=== PATIENT | female | born 1935 | race Caucasian/White ===

== ENCOUNTER 2016-05-22 17:28 | Observation (INO) | payer MEDICARE, OTHER ==
[2016-05-22] VITALS (10 sets, daily range): BP systolic 129–184; BP diastolic 72–93; PULSE 63–89; RESP 16–20; TEMP 96.1–98.3; O2SAT 94–98
[~2016-05-22] VITALS: Ht 165.1 cm; Wt 61.4 kg
[~2016-05-22 17:28] MED LIST: ASPI81TA82 PO; ATOR10 PO; DOXY100T PO; DYAZ; LEVO.05 PO; LOSA50TA PO
[2016-05-22 17:54] LABS: AUTOMATED NEUTROPHIL # 3.3 TH/MM3 (1.8-7.7); BASOPHIL # 0.1 TH/MM3 (0-0.2); BASOPHIL % 1.7 % (0.0-2.0); EOSINOPHIL # 0.2 TH/MM3 (0-0.4); EOSINOPHIL % 2.7 % (0.0-4.0); HEMATOCRIT 40.5 % (35.0-46.0); HEMO FLAGS DIFF FINAL; LYMPHOCYTE # 1.8 TH/MM3 (1.0-4.8); MEAN CELL VOLUME 88.4 FL (80.0-100.0); MEAN CORPUSCULAR HEMOGLOBIN 30.1 PG (27.0-34.0); MEAN CORPUSCULAR HGB CONC 34.1 % (32.0-36.0); MONO % 7.8 % (0.0-8.0); NEUT % 57.8 % (16.0-70.0); PLATELET COUNT 283 TH/MM3 (150-450); RED BLOOD COUNT 4.58 MIL/MM3 (4.00-5.30); WHITE BLOOD COUNT 5.9 TH/MM3 (4.0-11.0)
--- NOTE | 2016-05-22 17:59 | PD ---
HPI Chief Complaint: Chest Pain Time Seen by Provider: 17:33 Travel History International Travel<30 days: No Contact w/Intl Traveler<30days: No Traveled to known affect area: No History of Present Illness HPI This is an 80-year-old female who has a history of hypertension and hyperlipidemia who presents to the emergency department with 2 days of chest tightness described as discomfort, moderate severity, radiating to the left arm , with no associated shortness of breath or nausea. She said yesterday she thought maybe it was indigestion but it persisted throughout the day and gotten worse. She went to her friend's house who is a nurse who took her blood pressure and found it to be over 200. She encouraged her to come to the emergency department. She has no association of her symptoms with exertion. She follows with Dr. Christopher as an outpatient. PFSH Past Medical History Hx Anticoagulant Therapy: Yes (ASA) Autoimmune Disease: No Blood Disorders: No Anxiety: No Depression: No Cancer: No Cardiovascular Problems: Yes High Cholesterol: Yes Cerebrovascular Accident: Yes (TIA) Coronary Artery Disease: Yes Endocrine: Yes Genitourinary: No Headaches: Yes Hiatal Hernia: Yes Hypertension: Yes Implanted Vascular Access Dvce: No Musculoskeletal: No Neurologic: Yes Psychiatric: No Reproductive: No Respiratory: No Thyroid Disease: Yes Menopausal: Yes Past Surgical History Endocrine Surgery: Yes (PARTIAL THYROIDECTOMY) Other Surgery: Yes Social History Alcohol Use: Yes (1-2 GLASSES WINE) Tobacco Use: No (QUIT 1978) Substance Use: No Allergies-Medications (Allergen,Severity, Reaction): Coded Allergies: No Known Allergies (Verified , 05/22/16) Reported Meds & Prescriptions Reported Meds & Active Scripts Active Reported Vitamin D (Cholecalciferol) 1,000 Unit Tab 1,000 Units PO DAILY Aspirin Low Dose (Aspirin) 81 Mg Chew 81 Mg CHEW DAILY Levothyroxine (Levothyroxine Sodium) 50 Mcg Tab 50 Mcg PO DAILY Amlodipine (Amlodipine Besylate) 5 Mg Tab 5 Mg PO DAILY Atorvastatin (Atorvastatin Calcium) 10 Mg Tab 10 Mg PO HS Budesonide DR (Budesonide) 3 Mg Capdr 9 Mg PO DAILY Physical Exam Narrative GENERAL:Well appearing, no acute distress SKIN: Warm and dry. HEAD: Atraumatic. Normocephalic. EYES: Pupils equal and round. No injection or drainage. ENT: Moist mucous membranes NECK: Trachea midline. CARDIOVASCULAR: Regular rate and rhythm. No murmur appreciated. RESPIRATORY: Clear to auscultation. Breath sounds equal bilaterally. GASTROINTESTINAL: Abdomen soft, non-tender, nondistended. MUSCULOSKELETAL: No obvious deformities. NEUROLOGICAL: Awake and alert. No obvious cranial nerve deficits. Moving all extremities. PSYCHIATRIC: Appropriate mood and affect; insight and judgment normal. Data Data Last Documented VS Vital Signs Date Time Temp Pulse Resp B/P Pulse Ox O2 Delivery O2 Flow Rate FiO2 05/22/16 18:30 78 18 136/83 97 Room Air 05/22/16 17:46 98.3 Orders Electrocardiogram (05/22/16 17:46) Complete Blood Count With Diff (05/22/16 17:46) Comprehensive Metabolic Panel (05/22/16 17:46) Magnesium (Mg) (05/22/16 17:46) Prothrombin Time / Inr (Pt) (05/22/16 17:46) Act Partial Throm Time (Ptt) (05/22/16 17:46) Troponin I (05/22/16 17:46) Chest, Single Ap (05/22/16 17:46) Ecg Monitoring (05/22/16 17:46) Bilateral Bp Monitoring (05/22/16 17:46) Iv Access Insert/Monitor (05/22/16 17:46) Oximetry (05/22/16 17:46) Oxygen Administration (05/22/16 17:46) Aspirin Chew (Aspirin Chew) (05/22/16 18:00) Nitroglycerin 2% Oint (Nitroglycerin 2% (05/22/16 18:00) Sodium Chloride 0.9% Flush (Ns Flush) (05/22/16 18:00) Admit Order (Ed Use Only) (05/22/16 19:02) Labs Laboratory Tests Test 05/22/16 17:30 White Blood Count 5.9 TH/MM3 Red Blood Count 4.58 MIL/MM3 Hemoglobin 13.8 GM/DL Hematocrit 40.5 % Mean Corpuscular Volume 88.4 FL Mean Corpuscular Hemoglobin 30.1 PG Mean Corpuscular Hemoglobin 34.1 % Concent Red Cell Distribution Width 13.0 % Platelet Count 283 TH/MM3 Mean Platelet Volume 7.7 FL Neutrophils (%) (Auto) 57.8 % Lymphocytes (%) (Auto) 30.0 % Monocytes (%) (Auto) 7.8 % Eosinophils (%) (Auto) 2.7 % Basophils (%) (Auto) 1.7 % Neutrophils # (Auto) 3.3 TH/MM3 Lymphocytes # (Auto) 1.8 TH/MM3 Monocytes # (Auto) 0.5 TH/MM3 Eosinophils # (Auto) 0.2 TH/MM3 Basophils # (Auto) 0.1 TH/MM3 CBC Comment DIFF FINAL Differential Comment Prothrombin Time 10.0 SEC Prothromb Time International 0.9 RATIO Ratio Activated Partial 25.3 SEC Thromboplast Time Sodium Level 142 MEQ/L Potassium Level 3.4 MEQ/L Chloride Level 105 MEQ/L Carbon Dioxide Level 28.3 MEQ/L Anion Gap 9 MEQ/L Blood Urea Nitrogen 18 MG/DL Creatinine 0.61 MG/DL Estimat Glomerular Filtration 94 ML/MIN Rate Random Glucose 126 MG/DL Calcium Level 8.6 MG/DL Magnesium Level 2.0 MG/DL Total Bilirubin 0.4 MG/DL Aspartate Amino Transf 16 U/L (AST/SGOT) Alanine Aminotransferase 19 U/L (ALT/SGPT) Alkaline Phosphatase 92 U/L Troponin I 0.02 NG/ML Total Protein 6.8 GM/DL Albumin 3.3 GM/DL MDM Medical Decision Making Medical Screen Exam Complete: Yes Emergency Medical Condition: Yes Interpretation(s) Afebrile, hypertensive No leukocytosis Mild hypokalemia Troponin normal Last 24 hours Impressions Chest X-Ray 05/22/16 5932 Signed Impressions: Service Date/Time: Sunday, May 22, 2016 17:52 - CONCLUSION: No acute disease. Geo Ervin MD Differential Diagnosis Acute coronary syndrome, pneumonia, anxiety, GERD Narrative Course This is an 80-year-old female who presents to the emergency department with chest discomfort that's been present and worsening over the past 2 days associated with hypertension and some left arm discomfort. She was placed on a monitor and an IV was established. EKG was reassuring. Labs are reassuring with a troponin of 0.02. Patient was given 162 of aspirin and nitroglycerin ointment was applied and the patient's hypertension resolved. Patient will be placed in observation for serial cardiac enzymes and possible risk stratification in the setting of a concerning story for possible acute coronary syndrome Diagnosis Primary Impression: Chest pain Qualified Code: R07.9 - Chest pain, unspecified type Admitting Information Admitting Physician Requests: Observation Sol South MD May 22, 2016 17:58
[2016-05-22] MEDS ORDERED: NITROGLYCERIN 2% OINT 1 GM PACKET TOP ONE (18:00)
[2016-05-22] MEDS ORDERED: SODIUM CHLORIDE 0.9% FLUSH 5 ML FLUSH IVF PRN ×2 (18:00→19:30)
[2016-05-22] MEDS ORDERED: ASPIRIN 81 MG CHEW TAB PO ONE (18:00)
[2016-05-22 18:01] LABS: CHLORIDE 105 MEQ/L (98-107); POTASSIUM 3.4 MEQ/L (3.5-5.1); SODIUM (NA) 142 MEQ/L (136-145)
[2016-05-22 18:04] LABS: ANION GAP 9 MEQ/L (5-15); BICARBONATE 28.3 MEQ/L (21.0-32.0)
[2016-05-22 18:05] LABS: BLOOD UREA NITROGEN 18 MG/DL (7-18)
[2016-05-22 18:07] LABS: ALT (GPT) 19 U/L (10-53); APTT (PATIENT) 25.3 SEC (24.3-30.1); INTERNATIONAL NORMALIZED RATIO 0.9 RATIO
[2016-05-22 18:08] LABS: AST (GOT) 16 U/L (15-37); GLOMERULAR FILTRATION RATE 94 ML/MIN (>89)
[2016-05-22 18:09] LABS: TOTAL BILIRUBIN ADULT 0.4 MG/DL (0.2-1.0)
[2016-05-22] MEDS ORDERED: BUDE3CAP PO (18:09)
[2016-05-22] MEDS ORDERED: ASPI81CH37 CHEW (18:09)
[2016-05-22] MEDS ORDERED: LEVO50TA4 PO (18:09)
[2016-05-22] MEDS ORDERED: AMLO5TAB2 PO (18:09)
[2016-05-22] MEDS ORDERED: VITA100064 PO (18:09)
[2016-05-22] MEDS ORDERED: ATOR10TA15 PO (18:09)
[2016-05-22 18:10] LABS: ALKALINE PHOSPHATASE 92 U/L (45-117)
--- NOTE | 2016-05-22 18:37 | RADHPO ---
EXAM DATE/TIME: 05/22/2016 17:52 [facility] COMPARISON: No previous studies available for comparison. INDICATIONS : Chest pain. MEDICAL HISTORY : None. SURGICAL HISTORY : None. ENCOUNTER: Initial ACUITY: 1 day PAIN SCORE: 4/10 LOCATION: Bilateral chest FINDINGS: A single view of the chest demonstrates the lungs to be symmetrically aerated without evidence of mas s, infiltrate or effusion. The cardiomediastinal contours are unremarkable. Osseous structures are intact. CONCLUSION: No acute disease. Geo Ervin MD on May 22, 2016 at 18:36 Board Certified Radiologist. This report was verified electronically.
[2016-05-22] MEDS: SODIUM CHLORIDE 0.9% FLUSH 5 ML FLUSH IVF SCH (22:15)
[2016-05-23] VITALS: BP 92/70; PULSE 63; RESP 18; TEMP 96.8; O2SAT 94
[2016-05-23 04:00] VITALS: BP 157/80; PULSE 62; RESP 18; TEMP 96.9; O2SAT 94
[2016-05-23] MEDS ORDERED: LEVOTHYROXINE SODIUM 50 MCG TAB PO SCH (06:00)
--- NOTE | 2016-05-23 07:55 | HHI.HP ---
[facility] Service [facility] Primary Care Physician Lita Coughlin DO Admission Diagnosis chest pain Diagnoses: (1) Chest pain Diagnosis: Principal (2) Hypertension Diagnosis: Secondary (3) Hyperlipidemia Diagnosis: Secondary (4) Hypothyroidism Diagnosis: Secondary Chief Complaint: Chest pain Travel History International Travel<30 Days: No Contact w/Intl Traveler <30 Da: No Traveled to Known Affected Are: No History of Present Illness 80-year-old female with known history of hypertension, hyperlipidemia , hypothyroidism, possible Crohn's disease who presented to hospital because of chest pain. Patient states that her pain started 2 days ago dislocating left anterior chest as a tightness sensation scale 6/10 on a discomfort scale. Patient denies any actual pain. She states that the discomfort was in her left anterior chest radiating into her left arm and left neck that has remained persistent for the 2 days. She denied any nausea, vomiting, shortness of breath , dyspnea, diaphoresis. She was checking her blood pressure intermittently and noticed that her systolic pressure was 185. She did visit a friend last evening who is a nurse. She requested that her friend check her blood pressure and the systolic pressure was 209. At that time is recommended by the friend and the patient come to the hospital for evaluation. Patient had workup done emergency department and initial troponins and EKGs did not indicate any acute coronary event. Is recommended by the ER physician that the patient be observed and chest pain center for further recommendations. I did contact the patient's white shoe ragger who indicates that the patient has had an exercise nuclear stress test done on 12/13/14 which was normal with ejection fraction 75% . Health Information Management Director does agree with performing stress test today. Review of Systems Constitutional: DENIES: Diaphoretic episodes, Fatigue, Fever, Weight gain, Weight loss, Chills, Dizziness, Change in appetite, Night Sweats Eyes: DENIES: Blurred vision, Diplopia, Eye inflammation, Eye pain, Vision loss , Photosensitivity, Double Vision Ears, nose, mouth, throat: DENIES: Hearing loss, Nasal discharge, Throat pain, Ear Pain, Running Nose, Sinus Pain, Toothache Respiratory: DENIES: Apneas, Cough, Snoring, Wheezing, Hemoptysis, Sputum production, Shortness of breath Cardiovascular: COMPLAINS OF: Chest pain, Palpitations, DENIES: Syncope, Dyspnea on Exertion, Lower Extremity Edema, Orthopnea Gastrointestinal: DENIES: Abdominal pain, Black stools, Bloody stools, Constipation, Diarrhea, Nausea, Vomiting, Difficulty Swallowing, Anorexia Genitourinary: DENIES: Abnormal vaginal bleeding, Dysmenorrhea, Dyspareunia, Sexual dysfunction, Urinary frequency, Urinary incontinence, Urgency, Hematuria , Dysuria, Nocturia, Vaginal discharge Neurologic: DENIES: Abnormal gait, Headache, Localized weakness, Paresthesias, Seizures, Speech Problems, Tremor, Poor Balance Psychiatric: DENIES: Anxiety, Confusion, Mood changes, Depression Past Family Social History Past Medical History Hypertension Hyperlipidemia Hypothyroidism Possible Crohn's disease with ulcerations in the small bowel Past Surgical History Right rotator cuff surgery Lesion removed from her back Tonsillectomy Reported Medications Reported Meds & Active Scripts Active Reported Vitamin D (Cholecalciferol) 1,000 Unit Tab 1,000 Units PO DAILY Aspirin Low Dose (Aspirin) 81 Mg Chew 81 Mg CHEW DAILY Levothyroxine (Levothyroxine Sodium) 50 Mcg Tab 50 Mcg PO DAILY Amlodipine (Amlodipine Besylate) 5 Mg Tab 5 Mg PO DAILY Atorvastatin (Atorvastatin Calcium) 10 Mg Tab 10 Mg PO HS Budesonide DR (Budesonide) 3 Mg Capdr 9 Mg PO DAILY Allergies: Coded Allergies: No Known Allergies (Verified , 05/22/16) Family History Review significant for mother from bowel obstruction, patient denies any cardiac history Social History Patient quit smoking in 1978. Prior to that she smoked socially now more than a pack a week for a few years. Patient does drink 2 glasses of wine daily. Patient denies any illicit drugs Physical Exam Vital Signs Vital Signs Date Time Temp Pulse Resp B/P Pulse Ox O2 Delivery O2 Flow Rate FiO2 05/23/16 04:00 96.9 62 18 157/80 94 05/23/16 00:00 96.8 63 18 92/70 94 05/22/16 23:02 95 21 05/22/16 21:00 63 05/22/16 20:58 96.1 64 16 153/77 95 05/22/16 20:57 60 18 129/73 94 05/22/16 20:07 64 18 134/73 94 Room Air 05/22/16 19:02 72 18 95 Room Air 05/22/16 19:02 71 18 132/77 95 Room Air 05/22/16 18:30 78 18 136/83 97 Room Air 05/22/16 18:03 77 18 172/89 98 Room Air 147/72 05/22/16 17:55 97 Room Air 05/22/16 17:55 97 Room Air 05/22/16 17:55 6 97 Room Air 05/22/16 17:46 98.3 89 20 184/93 97 Physical Exam GENERAL: Well-developed, well-nourished, in no acute distress. alert and orientated HEENT: Head is normocephalic without any lesions or masses noted. Facial features are symmetric. Eyes: Pupils equal round reactive to light. Extraocular muscles are intact. Conjunctivae were clear. Oropharyngeal: Pharynx without any erythema edema. Tongue is midline without deviation. Buccal mucosa is moist without any masses or lesions NECK: Supple without any masses. Trachea midline no deviation. No JVD, no bruits are appreciated CARDIAC: Regular rhythm, regular rate. S1/S2 are heard. No murmurs gallops or rubs. LUNGS: Clear to auscultation bilaterally. No wheeze, rhonchi or rales. No use of accessory muscles on inspiration or expiration. ABDOMEN: Soft, nontender. Nondistended. Bowel sounds heard in all 4 quadrants. No organomegaly or masses. Negative rebound, negative guarding EXTREMITIES: No edema, pulses are equal bilaterally. No cyanosis or clubbing NEUROLOGY: Mood and affect appear appropriate. Cranial nerves II through XII grossly intact. Muscle strength 5/5 in upper and lower extremities bilaterally. Deep tendon reflexes are 2+ in upper and lower extremities bilaterally. Laboratory Laboratory Tests Test 05/22/16 05/22/16 05/23/16 17:30 20:35 00:19 White Blood Count 5.9 Red Blood Count 4.58 Hemoglobin 13.8 Hematocrit 40.5 Mean Corpuscular Volume 88.4 Mean Corpuscular Hemoglobin 30.1 Mean Corpuscular Hemoglobin 34.1 Concent Red Cell Distribution Width 13.0 Platelet Count 283 Mean Platelet Volume 7.7 Neutrophils (%) (Auto) 57.8 Lymphocytes (%) (Auto) 30.0 Monocytes (%) (Auto) 7.8 Eosinophils (%) (Auto) 2.7 Basophils (%) (Auto) 1.7 Neutrophils # (Auto) 3.3 Lymphocytes # (Auto) 1.8 Monocytes # (Auto) 0.5 Eosinophils # (Auto) 0.2 Basophils # (Auto) 0.1 CBC Comment DIFF FINAL Differential Comment Prothrombin Time 10.0 Prothromb Time International 0.9 Ratio Activated Partial 25.3 Thromboplast Time Sodium Level 142 Potassium Level 3.4 Chloride Level 105 Carbon Dioxide Level 28.3 Anion Gap 9 Blood Urea Nitrogen 18 Creatinine 0.61 Estimat Glomerular Filtration 94 Rate Random Glucose 126 Calcium Level 8.6 Magnesium Level 2.0 Total Bilirubin 0.4 Aspartate Amino Transf 16 (AST/SGOT) Alanine Aminotransferase 19 (ALT/SGPT) Alkaline Phosphatase 92 Troponin I 0.02 0.03 0.03 Total Protein 6.8 Albumin 3.3 Result Diagram: 05/22/16172905/22/161729 Imaging Last Impressions Chest X-Ray 05/22/16 1746 Signed Impressions: Service Date/Time: Sunday, May 22, 2016 17:52 - CONCLUSION: No acute disease. Geo Ervin MD Assessment and Plan Assessment and Plan Chest pain, typical Patient with increased risk factors to include age, hypertension, hyperlipidemia Discuss with patient's white shoe ragger Dr. Marino, patient has had stress test done in 12/13/14 which was normal with ejection fraction 75%. He does agree with performing stress test Serial cardiac enzymes were reviewed by myself and remained negative and ruled out any acute coronary event Serial EKGs were reviewed without any changes Perform nuclear stress test rule out any underlying ischemia Continue aspirin and nitroglycerin as needed Accelerated hypertension, resolved Status post nitroglycerin emergency department with resolution of her accelerated hypertension Continue home medications Hyperlipidemia Continue home medications Hypothyroidism Continue home medications DVT prevention Low risk, early ambulation Written by Jeff Shaw PA-C, acting as scribe for Dr. Miller on 05/23/16 at 1205. The documentation accurately reflects the work and decisions performed face-to- face by Dr. Miller on 05/23/16 at 1205. Discharge disposition Discharge home in stable condition Activity: Ad lisa. Diet: Healthy heart diet Medications per medication reconciliation Follow-up primary medical doctor one week, white shoe ragger in 2 weeks Problem Qualifiers (1) Chest pain: Qualified Code: R07.9 - Chest pain, unspecified type (2) Hypertension: Qualified Code: I15.9 - Secondary hypertension (3) Hyperlipidemia: Qualified Code: E78.5 - Hyperlipidemia, unspecified hyperlipidemia type (4) Hypothyroidism: Qualified Code: E03.9 - Hypothyroidism, unspecified type Jeff Shaw May 23, 2016 07:55
[2016-05-23 08:00] VITALS: BP 151/79; PULSE 67; RESP 17; TEMP 97.9; O2SAT 94
[2016-05-23] MEDS: SODIUM CHLORIDE 0.9% FLUSH 5 ML FLUSH IVF SCH (08:10)
[2016-05-23 08:56] VITALS: O2SAT 94
[2016-05-23] MEDS ORDERED: amLODIPine BESYLATE 5 MG TAB PO SCH (09:00)
[2016-05-23] MEDS ORDERED: ASPIRIN 81 MG CHEW TAB CHEW SCH (09:00)
[2016-05-23] MEDS ORDERED: REGADENOSON INJ 0.4 MG/5 ML SYR IV ONE (10:41)
--- NOTE | 2016-05-23 11:56 | RADHPO ---
EXAM DATE/TIME: 05/23/2016 10:52 [facility] COMPARISON: No previous studies available for comparison. INDICATIONS : Susbternal chest pain radiating to left arm and neck for three days. Angina. DOSE: 25.4 mCi Tc99m Myoview at stress. 8.5 mCi Tc99m Myoview at rest. 0.4 mg Lexiscan STRESS SYMPTOMS: Dyspnea and stomach pain. EJECTION FRACTION: 67% MEDICAL HISTORY : Hypertension. Hypothyroidism. SURGICAL HISTORY : Tonsillectomy. Rotator cuff, right. Lesion removed from back. ENCOUNTER: Initial ACUITY: 3 days PAIN SCALE: 6/10 LOCATION: Substernal chest TECHNIQUE: The patient underwent pharmacologic stress with infusion of prescribed dose. Continuous ECG tracing was monitored during stress. Gated SPECT imaging was performed after stress and conventional SPECT i maging was performed at rest. The examination was performed on a SPECT/CT scanner, both attenuation and non-corrected datasets were reviewed. FINDINGS: DISTRIBUTION: The maximum perfused segment at stress is in the inferolateral wall. PERFUSION STUDY: The pattern of perfusion at stress is within normal limits. No fixed or reversible perfusion defect i s identified. GATED STUDY: There is intact wall motion and thickening without hypokinetic or dyskinetic segments. CONCLUSION: 1. Left ventricle perfusion is within normal limits without fixed or reversible perfusion defect iden tified. 2. Normal left ventricle wall motion with calculated ejection fraction of 67%. RISK CATEGORY: Low (<1% Annual Mortality Rate) Geo Cherry MD on May 23, 2016 at 11:53 Board Certified Radiologist. This report was verified electronically.
--- NOTE | 2016-05-23 11:58 | HHI.DCPOC ---
Discharge Care Plan Diagnosis: (1) Chest pain Goals to Promote Your Health * To prevent worsening of your condition and complications * To maintain your health at the optimal level Directions to Meet Your Goals Take your medications as prescribed Follow your dietary instruction Follow activity as directed Keep your appointments as scheduled Take your immunizations and boosters as scheduled If your symptoms worsen call your PCP, if no PCP go to Urgent Care Center or Emergency Room Smoking is Dangerous to Your Health. Avoid second hand smoke Call the 24-hour hour crisis hotline for domestic abuse at Jeff Shaw May 23, 2016 11:58
[2016-05-23 12:00] VITALS: BP 149/77; PULSE 77; RESP 19; TEMP 97.9; O2SAT 96
--- NOTE | 2016-05-23 13:00 | TR ---
Date Performed: 05/23/2016 Time Performed: 10:55:46 DOCTOR: Jaya Stafford DRUG LIST: CLINICAL HISTORY: CHEST PAIN REASON FOR TEST: Chest pain. REASON FOR ENDING: OBSERVATION: CONCLUSION: Lexiscan stress test was performed under standard four minute protocol. Radionuclide was injected one minute prior to ending the test. Developed dyspnea and stomach cramps, systolic blo od pressure became mildly elevated. No electrocardiographic abnormalities were present to suggest isc hemia. Recovery was quick and uneventful with resolution of symptoms, systolic blood pressure improve d remained slightly elevated. Nuclear imaging and interpretation are pending. COMMENTS:
[2016-05-23] MEDS ORDERED: ATORVASTATIN 10 MG TAB PO SCH (21:00)
--- NOTE | 2016-05-23 23:22 | EKG ---
Date Performed: 05/23/2016 Time Performed: 06:08:42 PTAGE: 80 years EKG: Sinus rhythm Leftward axis Anterior T wave changes are nonspecific Borderline ECG PREVIOUS TRACING : 05/23/2016 00.01 Compared to prior tracing no significant change DOCTOR: Lucas Mistry Interpretating Date/Time 05/23/2016 23:20:54
--- NOTE | 2016-05-23 23:32 | EKG ---
Date Performed: 05/23/2016 Time Performed: 00:01:20 PTAGE: 80 years EKG: Sinus rhythm Leftward axis Anterolateral T wave changes are nonspecific Borderline ECG PREVIOUS TRACING : 05/22/2016 20.46 Compared to prior tracing no significant change DOCTOR: Lucas Mistry Interpretating Date/Time 05/23/2016 23:29:58
--- NOTE | 2016-05-23 23:38 | EKG ---
Date Performed: 05/22/2016 Time Performed: 20:46:26 PTAGE: 80 years EKG: Sinus rhythm . Leftward axis Possible anterior infarct - age undetermined Lateral ST-T changes are nonspecific Abn ormal ECG PREVIOUS TRACING : 05/22/2016 17.33 Compared to the previous tracing, rate has decreased DOCTOR: Lucas Mistry Interpretating Date/Time 05/23/2016 23:37:10
--- NOTE | 2016-05-24 21:00 | EKG ---
Date Performed: 05/22/2016 Time Performed: 17:33:54 PTAGE: 80 years EKG: Sinus rhythm . Left axis deviation Left ventricular hypertrophy Lateral ST-T changes are probably due to ventricul ar hypertrophy Abnormal ECG PREVIOUS TRACING : 08/20/2011 11.33 Compared to the previous tracing, ST/T changes are slightly more prominent DOCTOR: Lucas Mistry Interpretating Date/Time 05/24/2016 21:00:19
== END 2016-05-23 12:52 | disposition home or self-care (01) ==
LOC: PHED 17:28 → PHEDA 19:03 → PH3A 20:53
PROVIDERS: ADMIT Family Medicine; ATTEND Family Medicine
DX: R07.9 Chest pain, unspecified (principal); I15.9 Secondary hypertension, unspecified; R94.31 Abnormal electrocardiogram [ECG] [EKG]; E78.5 Hyperlipidemia, unspecified; E03.9 Hypothyroidism, unspecified; I25.10 Atherosclerotic heart disease of native coronary artery without angina pectoris; E78.00 Pure hypercholesterolemia, unspecified; Z86.73 Personal history of transient ischemic attack (TIA), and cerebral infarction without residual deficits; Z87.891 Personal history of nicotine dependence
CPT/HCPCS: 71010; 78452; 80053; 83735; 84484; 85025; 85610; 85730; 93005; 93017; 99285; A9502; G0378; J2785

== ENCOUNTER 2017-07-19 08:11 | Emergency (ER) | payer MEDICARE, OTHER ==
[~2017-07-19] VITALS: Ht 165.1 cm; Wt 61.2 kg
[~2017-07-19 08:11] MED LIST changes: +AMLO5TAB2 PO; +ASPI81CH6 CHEW; -ASPI81TA82 PO; -ATOR10 PO; +ATOR10TA15 PO; +BUDE3CAP PO; -DOXY100T PO; -DYAZ; -LEVO.05 PO; +LEVO50TA4 PO; -LOSA50TA PO; +VITA100064 PO
[2017-07-19 08:15] VITALS: BP 139/70; PULSE 66; RESP 16; TEMP 97.9
[2017-07-19] MEDS ORDERED: CARV3.12 PO (08:38)
[2017-07-19] MEDS ORDERED: ENTERAGAM PO (08:38)
[2017-07-19] MEDS ORDERED: CEPH-460 PO (08:39)
--- NOTE | 2017-07-19 08:39 | PD ---
HPI Chief Complaint: Skin Problem Time Seen by Provider: 08:34 Travel History International Travel<30 days: No Contact w/Intl Traveler<30days: No Traveled to known affect area: No History of Present Illness HPI This 82-year-old female has noted swelling and pain in the nasal septum. The pain spreads around the face. She has not had fever or chills. There has not been any drainage from her nose. There is no history of trauma. She does not have diabetes. She went to urgent care center yesterday and was given prescription for steroid spray for her nose PFSH Past Medical History Hx Anticoagulant Therapy: Yes (lavix) Autoimmune Disease: No Blood Disorders: No Anxiety: No Depression: No Heart Rhythm Problems: No Cancer: No Cardiac Catheterization: No Cardiovascular Problems: No High Cholesterol: Yes (< 50% blockage carotids ) Congestive Heart Failure: No Cerebrovascular Accident: Yes (TIA) Coronary Artery Disease: Yes Diabetes: No Diminished Hearing: No Endocrine: Yes Gastrointestinal Disorders: Yes (THICKENED COLON) Genitourinary: No Headaches: Yes Hiatal Hernia: Yes Hypertension: Yes Implanted Vascular Access Dvce: No Musculoskeletal: No Neurologic: Yes Psychiatric: No Reproductive: No Respiratory: No Immunizations Current: Yes Thyroid Disease: Yes Menopausal: Yes Past Surgical History Coronary Artery Bypass Graft: No Endocrine Surgery: Yes (PARTIAL THYROIDECTOMY) Gynecologic Surgery: Yes (BLADDER SLING) Tonsillectomy: Yes Other Surgery: Yes (SPINAL CYST) Social History Alcohol Use: Yes (1-2 GLASSES WINE) Tobacco Use: No (QUIT 1978) Substance Use: No Allergies-Medications (Allergen,Severity, Reaction): Coded Allergies: No Known Allergies (Verified , 05/22/16) Reported Meds & Prescriptions Reported Meds & Active Scripts Active Reported Vitamin D (Cholecalciferol) 1,000 Unit Tab 1,000 Units PO DAILY Aspirin Low Dose (Aspirin) 81 Mg Chew 81 Mg CHEW DAILY Levothyroxine (Levothyroxine Sodium) 50 Mcg Tab 50 Mcg PO DAILY Amlodipine (Amlodipine Besylate) 5 Mg Tab 5 Mg PO DAILY Atorvastatin (Atorvastatin Calcium) 10 Mg Tab 10 Mg PO HS Budesonide DR (Budesonide) 3 Mg Capdr 9 Mg PO DAILY Review of Systems General / Constitutional: No: Fever, Chills Eyes: No: Diploplia HENT: Positive: Headaches Cardiovascular: No: Chest Pain or Discomfort, Palpitations Respiratory: No: Cough Gastrointestinal: No: Vomiting Skin: Positive Rash Endocrine: No: Heat Intolerance Physical Exam Narrative GENERAL: Well-developed female SKIN: Focused skin assessment warm/dry. HEAD: Atraumatic. Normocephalic. EYES: Pupils equal and round. No scleral icterus. No injection or drainage. ENT: No nasal bleeding or discharge. Mucous membranes pink and moist. There is erythema on both sides of the nasal septum. The right side of the septum is more swollen and is quite tender. There is no pus visible but I believe this is a small pustular lesion NECK: Trachea midline. No JVD. NEUROLOGICAL: Awake and alert. No obvious cranial nerve deficits. Motor grossly within normal limits. Normal speech. PSYCHIATRIC: Appropriate mood and affect; insight and judgment normal. Data Data Last Documented VS Vital Signs Date Time Temp Pulse Resp B/P (MAP) Pulse Ox O2 Delivery O2 Flow Rate FiO2 07/19/17 08:15 97.9 66 16 139/70 (93) Room Air MDM Medical Decision Making Medical Screen Exam Complete: Yes Emergency Medical Condition: Yes Medical Record Reviewed: Yes Differential Diagnosis Differential includes cellulitis, small abscess, postural Narrative Course Tenderness consistent with a pustule of the nasal septum Diagnosis Primary Impression: Pustule of nostril Additional Instructions: Apply warm compresses Scripts Cephalexin (Keflex) 500 Mg Capsule 500 MG PO Q6H for Infection for 7 Days, #28 CAP 0 Refills Prov: Warren Martin MD 07/19/17 Disposition: 01 DISCHARGE HOME Condition: Stable Warren Martin MD Jul 19, 2017 08:39
[2017-07-19] MEDS ORDERED: PLAV75TA29 PO (08:45)
[2017-07-19] MEDS ORDERED: VITA100021 SL (08:45)
[2017-07-19] MEDS ORDERED: SPIR25TA PO (08:45)
[2017-07-20] MEDS ORDERED: AMLO2.5T PO (05:04)
[2017-07-20] MEDS ORDERED: PANT40TA3 PO (05:04)
== END 2017-07-19 08:53 | disposition home or self-care (01) ==
LOC: PHED 08:11
DX: L08.9 Local infection of the skin and subcutaneous tissue, unspecified (principal); I10 Essential (primary) hypertension; I25.10 Atherosclerotic heart disease of native coronary artery without angina pectoris; E78.00 Pure hypercholesterolemia, unspecified; Z86.73 Personal history of transient ischemic attack (TIA), and cerebral infarction without residual deficits; Z79.82 Long term (current) use of aspirin; Z79.899 Other long term (current) drug therapy
CPT/HCPCS: 99283

== ENCOUNTER 2017-07-20 04:04 | Inpatient (IN) | payer MEDICARE, OTHER ==
[2017-07-20] VITALS (8 sets, daily range): BP systolic 107–183; BP diastolic 51–81; PULSE 58–75; RESP 18–20; TEMP 97–99.8; O2SAT 92–98
[~2017-07-20] VITALS: Ht 165.1 cm; Wt 62.8 kg
[~2017-07-20 04:04] MED LIST changes: -AMLO5TAB2 PO; -ASPI81CH6 CHEW; -BUDE3CAP PO; +CARV3.12 PO; +CEPH-460 PO; +ENTERAGAM PO; +PLAV75TA29 PO; +SPIR25TA PO; +VITA100021 SL
--- NOTE | 2017-07-20 04:19 | PD ---
HPI Chief Complaint: Nasal cellulitis Time Seen by Provider: 04:18 Travel History International Travel<30 days: No Contact w/Intl Traveler<30days: No Traveled to known affect area: No History of Present Illness HPI 82-year-old female came to the emergency room with infection of her nose that is getting worse in spite of being on antibiotic. Patient says that she started getting this last Tuesday where she started having pain in her nose. She had gone to the urgent care on Tuesday where she was told that it was probably allergy and she was discharged home on Flonase and some of the nasal spray. However by the end of the day symptoms did not get better and Tuesday she decided to come to the emergency room. She was seen in [place] emergency room and was discharged home on antibiotic. Patient says that she has taken the antibiotic for more than 24 hours and has been putting warm compress but the swelling, redness and the pain is getting worse. She was unable to sleep because of the throbbing pain. Patient says now the pain is radiating to her teeth and her ears. She has been getting some chills intermittently. In triage she was afebrile and the rest of the vital signs were within acceptable limit. She does not have history of MRSA as far as she knows. This has never happened to her before. [facility] Past Medical History Narrative Medical List of her past medical, surgical, social and family history reviewed from the nursing note. Hx Anticoagulant Therapy: Yes (lavix) Autoimmune Disease: No Blood Disorders: No Anxiety: No Depression: No Heart Rhythm Problems: No Cancer: No Cardiac Catheterization: No Cardiovascular Problems: No High Cholesterol: Yes (< 50% blockage carotids ) Congestive Heart Failure: No Cerebrovascular Accident: Yes (TIA) Coronary Artery Disease: Yes Diabetes: No Diminished Hearing: No Endocrine: Yes Gastrointestinal Disorders: Yes (THICKENED COLON) Genitourinary: No Headaches: Yes Hiatal Hernia: Yes Hypertension: Yes Implanted Vascular Access Dvce: No Musculoskeletal: No Neurologic: Yes Psychiatric: No Reproductive: No Respiratory: No Immunizations Current: Yes Thyroid Disease: Yes Menopausal: Yes Past Surgical History Coronary Artery Bypass Graft: No Endocrine Surgery: Yes (PARTIAL THYROIDECTOMY) Gynecologic Surgery: Yes (BLADDER SLING) Tonsillectomy: Yes Other Surgery: Yes (SPINAL CYST) Social History Alcohol Use: Yes (1-2 GLASSES WINE) Tobacco Use: No (QUIT 1979) Substance Use: No Allergies-Medications (Allergen,Severity, Reaction): Coded Allergies: Sulfa (Sulfonamide Antibiotics) (Verified Allergy, Severe, Rash, 07/19/17) Comments List of her allergies reviewed from the nursing note. Reported Meds & Prescriptions Reported Meds & Active Scripts Active Reported Pantoprazole (Pantoprazole Sodium) 40 Mg Tab 40 Mg PO DAILY Amlodipine (Amlodipine Besylate) 2.5 Mg Tab 2.5 Mg PO DAILY Vitamin B-12 (Cyanocobalamin) 1,000 Mcg Subl 1,000 Mcg SL DAILY Plavix (Clopidogrel Bisulfate) 75 Mg Tab 75 Mg PO DAILY Spironolactone 25 Mg Tab 25 Mg PO DAILY Carvedilol 3.125 Mg Tab 3.125 Mg PO DAILY Vitamin D3 (Cholecalciferol) 1,000 Unit Tab 1,000 Units PO DAILY Levothyroxine (Levothyroxine Sodium) 50 Mcg Tab 50 Mcg PO DAILY Atorvastatin (Atorvastatin Calcium) 10 Mg Tab 10 Mg PO HS Narrative Medication List of her home medications reviewed from the nursing note. Review of Systems Except as stated in HPI: all other systems reviewed are Neg Physical Exam Narrative GENERAL: Awake, alert, moderate distress SKIN: Focused skin assessment warm/dry. HEAD: Atraumatic. Normocephalic. EYES: Pupils equal and round. No scleral icterus. No injection or drainage. ENT: No nasal bleeding or discharge. Mucous membranes pink and moist. Tip of her nose and the septum appears to be swollen, erythematous, warm to touch and extremely tender. There is significant swelling of the cartilaginous part of the septum with tenderness. There is some yellowish encrustation at the base of the septum bilaterally NECK: Trachea midline. No JVD. CARDIOVASCULAR: Regular rate and rhythm. No murmur appreciated. RESPIRATORY: No accessory muscle use. Clear to auscultation. Breath sounds equal bilaterally. GASTROINTESTINAL: Abdomen soft, non-tender, nondistended. Hepatic and splenic margins not palpable. MUSCULOSKELETAL: No obvious deformities. No clubbing. No cyanosis. No edema. NEUROLOGICAL: Awake and alert. No obvious cranial nerve deficits. Motor grossly within normal limits. Normal speech. PSYCHIATRIC: Appropriate mood and affect; insight and judgment normal. Data Data Last Documented VS Orders Orders Complete Blood Count With Diff (07/20/17 04:36) Basic Metabolic Panel (Bmp) (07/20/17 04:36) C-Reactive Protein (Crp) (07/20/17 04:36) Vancomycin Inj (Vancomycin Inj) (07/20/17 04:45) Morphine Inj (Morphine Inj) (07/20/17 04:45) Ketorolac Inj (Toradol Inj) (07/20/17 04:45) Ct Facial Bones W Iv Contrast (07/20/17 ) Ondansetron Inj (Zofran Inj) (07/20/17 05:15) Iohexol 350 Inj (Omnipaque 350 Inj) (07/20/17 05:47) Place In Observation (07/20/17 ) Vital Signs (Adult) Q4H (07/20/17 06:26) Activity Oob With Assistance (07/20/17 06:26) Coating Manager / Telemetry .CONTINUOUS (07/20/17 06:26) Intake + Output BERTO.QSHIFT (07/20/17 06:26) Diet Npo (07/20/17 Breakfast) Sodium Chloride 0.9% Flush (Ns Flush) (07/20/17 06:30) Sodium Chloride 0.9% Flush (Ns Flush) (07/20/17 09:00) Ondansetron Inj (Zofran Inj) (07/20/17 06:30) Complete Blood Count With Diff (07/21/17 06:00) Scd Bilateral/Knee High BERTO.BID (07/20/17 06:26) Vinay Bilateral/Knee High BERTO.QSHIFT (07/20/17 06:26) Naloxone Inj (Narcan Inj) (07/20/17 06:30) Consult Ent (07/20/17 ) Morphine Inj (Morphine Inj) (07/20/17 06:30) Vancomycin Consult Pharmacy (Vancomycin (07/20/17 06:30) Amlodipine (Norvasc) (07/20/17 09:00) Atorvastatin (Lipitor) (07/20/17 21:00) Carvedilol (Coreg) (07/20/17 09:00) Levothyroxine (Synthroid) (07/20/17 06:00) Pantoprazole (Protonix) (07/20/17 09:00) Spironolactone (Aldactone) (07/20/17 09:00) Admit Order (Ed Use Only) (07/20/17 06:48) Labs Laboratory Tests Test 07/20/17 05:00 White Blood Count 9.8 TH/MM3 Red Blood Count 4.33 MIL/MM3 Hemoglobin 13.2 GM/DL Hematocrit 38.7 % Mean Corpuscular Volume 89.3 FL Mean Corpuscular Hemoglobin 30.6 PG Mean Corpuscular Hemoglobin Concent 34.2 % Red Cell Distribution Width 13.3 % Platelet Count 297 TH/MM3 Mean Platelet Volume 8.0 FL Neutrophils (%) (Auto) 75.9 % Lymphocytes (%) (Auto) 14.1 % Monocytes (%) (Auto) 7.6 % Eosinophils (%) (Auto) 1.6 % Basophils (%) (Auto) 0.8 % Neutrophils # (Auto) 7.4 TH/MM3 Lymphocytes # (Auto) 1.4 TH/MM3 Monocytes # (Auto) 0.7 TH/MM3 Eosinophils # (Auto) 0.2 TH/MM3 Basophils # (Auto) 0.1 TH/MM3 CBC Comment DIFF FINAL Differential Comment Blood Urea Nitrogen 13 MG/DL Creatinine 0.59 MG/DL Random Glucose 107 MG/DL Calcium Level 8.7 MG/DL Sodium Level 137 MEQ/L Potassium Level 3.7 MEQ/L Chloride Level 104 MEQ/L Carbon Dioxide Level 27.9 MEQ/L Anion Gap 5 MEQ/L Estimat Glomerular Filtration Rate 97 ML/MIN C-Reactive Protein 3.50 MG/DL MDM Medical Decision Making Medical Screen Exam Complete: Yes Emergency Medical Condition: Yes Medical Record Reviewed: Yes Differential Diagnosis Abscess, cellulitis, outpatient treatment. Narrative Course 5:45 AM patient was given a dose of vancomycin. Blood test results are back and CBC shows slight left shift. Chemistry is within normal limits. CRP is elevated. I have ordered for CT scan which is pending. Patient was medicated for pain as well. 6:18 AM CAT scan is suggestive of an abscess in the cartilaginous nasal septum. I am uncomfortable draining the cartilage and hence discussed the case with ENT clinical liaison Dr. Pantoja. He was okay with the admitting the patient to the hospitalist and he would come and consult on the patient. I will discuss this with the patient and admit her. Waiting for the hospitalist callback. Procedures EKG Prior to Arrival: No Physician Communication Physician Communication Dr. Pantoja Diagnosis Primary Impression: Nasal septal abscess Admitting Information Admitting Physician Requests: Admit Scripts Ciprofloxacin (Ciprofloxacin) 500 Mg Tab 500 MG PO BID for Infection, #20 TAB 0 Refills Prov: Kae Christianson MD 07/21/17 Nara Webster MD Jul 20, 2017 04:19
[2017-07-20] MEDS ORDERED: VANCOMYCIN INJ 1,000 MG in SODIUM CHLOR 0.9% 250 ML INJ 250 ML IV ONE (04:45)
[2017-07-20] MEDS ORDERED: KETOROLAC TROMETHAMINE 30 MG/ML (IVP) VIAL IV PUSH ONE (04:45)
[2017-07-20] MEDS ORDERED: MORPHINE SULFATE 4 MG/ML INJ IV PUSH ONE (04:45)
[2017-07-20] MEDS ORDERED: PANT40TA3 PO (05:04)
[2017-07-20] MEDS ORDERED: AMLO2.5T PO (05:04)
[2017-07-20 05:12] LABS: AUTOMATED NEUTROPHIL # 7.4 TH/MM3 (1.8-7.7); BASOPHIL # 0.1 TH/MM3 (0-0.2); BASOPHIL % 0.8 % (0.0-2.0); EOSINOPHIL # 0.2 TH/MM3 (0-0.4); EOSINOPHIL % 1.6 % (0.0-4.0); HEMATOCRIT 38.7 % (35.0-46.0); HEMOGLOBIN 13.2 GM/DL (11.6-15.3); LYMPH % 14.1 % (9.0-44.0); LYMPHOCYTE # 1.4 TH/MM3 (1.0-4.8); MEAN CELL VOLUME 89.3 FL (80.0-100.0); MEAN CORPUSCULAR HEMOGLOBIN 30.6 PG (27.0-34.0); MEAN CORPUSCULAR HGB CONC 34.2 % (32.0-36.0); MONO % 7.6 % (0.0-8.0); MONOCYTE # 0.7 TH/MM3 (0-0.9); NEUT % 75.9 % (16.0-70.0); PLATELET COUNT 297 TH/MM3 (150-450); RED BLOOD COUNT 4.33 MIL/MM3 (4.00-5.30); RED CELL DISTRIBUTION WIDTH 13.3 % (11.6-17.2); WHITE BLOOD COUNT 9.8 TH/MM3 (4.0-11.0)
[2017-07-20] MEDS ORDERED: ONDANSETRON HCL 4 MG/2 ML VIAL IV PUSH ONE (05:15)
[2017-07-20 05:25] LABS: CALCIUM 8.7 MG/DL (8.5-10.1)
[2017-07-20 05:26] LABS: BICARBONATE 27.9 MEQ/L (21.0-32.0)
[2017-07-20 05:29] LABS: CREATININE 0.59 MG/DL (0.50-1.00)
[2017-07-20 05:31] LABS: C-REACTIVE PROTEIN 3.5 MG/DL (0.00-0.30)
[2017-07-20] MEDS ORDERED: IOHEXOL 350 MG/ML 10 ML VIAL (for RAD DIAG) IVCONTRAST ONE (05:47)
--- NOTE | 2017-07-20 06:00 | RADRPT ---
EXAM DATE/TIME: 07/20/2017 05:42 [facility] COMPARISON: No previous studies available for comparison. INDICATIONS : Evaluate for abscess in nose. IV CONTRAST: 75 cc Omnipaque 350 (iohexol) IV RADIATION DOSE: 30.01 CTDIvol (mGy) MEDICAL HISTORY : Cardiovascular disease. SURGICAL HISTORY : Thyroidectomy. ENCOUNTER: Initial ACUITY: 1 day PAIN SCALE: 7/10 LOCATION: nose TECHNIQUE: Volumetric scanning of the facial bones was performed. Using automated exposure control and adjustme nt of the mA and/or kV according to patient size, radiation dose was kept as low as reasonably achiev able to obtain optimal diagnostic quality images. DICOM format image data is available electronicall y for review and comparison. FINDINGS: There is thickening of the soft tissues about the inferior nasal septum with a rounded hypodensity me asuring 1.0 cm. No internal gas. This could represent an abscess. A there is also mild thickening of the soft tissues anterior to the maxilla. The facial bones are grossly intact without evidence of fracture or focal bony destruction. The nasa l bone and maxillary spine are intact. CONCLUSION: 1 cm hypodensity in the inferior cartilaginous septum of the nose, suggestive of abscess. Grey Jacob MD on July 20, 2017 at 5:56 Board Certified Radiologist. This report was verified electronically.
[2017-07-20] MEDS ORDERED: ONDANSETRON HCL 4 MG/2 ML VIAL IVP PRN (06:30)
[2017-07-20] MEDS ORDERED: NALOXONE HCL 0.4 MG/ML AMP IV PUSH PRN ×2 (06:30→18:30)
[2017-07-20] MEDS ORDERED: SODIUM CHLORIDE 0.9% FLUSH 10 ML FLUSH IV FLUSH PRN ×2 (06:30→18:30)
[2017-07-20] MEDS ORDERED: Vancomycin Consult Pharmacy 1 EA OTHER SCH ×2 (06:30→11:00)
[2017-07-20] MEDS: LEVOTHYROXINE SODIUM 50 MCG TAB PO SCH (07:10)
[2017-07-20] MEDS ORDERED: SODIUM CHLORIDE 0.9% FLUSH 10 ML FLUSH IV FLUSH SCH (09:00)
[2017-07-20] MEDS: amLODIPine BESYLATE 5 MG TAB PO SCH (09:39)
[2017-07-20] MEDS: SPIRONOLACTONE 25 MG TAB PO SCH (09:40)
[2017-07-20] MEDS: PANTOPRAZOLE SOD 40 MG DELAYED RELEASE TAB PO SCH (09:40)
[2017-07-20] MEDS: CARVEDILOL 3.125 MG TAB PO SCH (09:41)
--- NOTE | 2017-07-20 11:10 | HHI.HP ---
[facility] Primary Care Physician Lita Coughlin DO Admission Diagnosis Nasal septal abscess, outpatient treatment failure Diagnoses: (1) Nasal septal abscess Diagnosis: Principal (2) Hypertension Diagnosis: Secondary (3) Hypothyroidism Diagnosis: Secondary (4) Hyperlipidemia Diagnosis: Secondary (5) Nose cellulitis Diagnosis: Principal Chief Complaint: Nasal cellulitis Travel History International Travel<30 Days: No Contact w/Intl Traveler <30 Da: No Traveled to Known Affected Are: No History of Present Illness Patient is a 82-year-old female. SHE was initially seen in the emergency department with infection in the right NARE of her nose that was getting worse in spite of being on Keflex antibiotics. Patient therefore decided to come back to the hospital for further evaluation since this is more painful and tender to her patient had been dealing with this since last Tuesday started having pain in her right nare. She had gone to an urgent care clinic on Tuesday was told there was probably allergy was discharged home on Flonase and some other nasal spray. But by the end of the day of the symptoms did not get better and wanted decided to come the emergency department. Patient was seen in [place] emergency department was discharged home on Keflex antibiotics. Patient states that she has been taking the antibiotic for more than 24 hours and putting warm compresses on it but the swelling and redness and pain is gotten worse. She therefore was unable to sleep because of the pain and therefore came back to the hospital for evaluation. Patient stated pain was radiating to her teeth and her ears. Had some questionable chills intermittently vital signs were stable and she presented has no history of MRSA that she knows of. ENT will be consulted. We will continue on antibiotics with vancomycin and Zosyn With pharmacy to dose Review of Systems Constitutional: COMPLAINS OF: Chills, DENIES: Diaphoretic episodes, Fatigue, Fever, Weight gain, Weight loss, Dizziness, Change in appetite Endocrine: DENIES: Abnorml menstrual pattern, Heat/cold intolerance, Polydipsia , Polyuria Eyes: DENIES: Blurred vision, Diplopia, Eye inflammation, Eye pain, Vision loss , Photosensitivity Ears, nose, mouth, throat: COMPLAINS OF: Nasal discharge (Tenderness from the right nare with crusting and some drainage), DENIES: Tinnitus, Hearing loss, Vertigo, Oral lesions, Throat pain, Hoarseness, Ear Pain, Running Nose, Epistaxis, Sinus Pain, Toothache, Odynophagia Respiratory: DENIES: Apneas, Cough, Snoring, Wheezing, Hemoptysis, Sputum production Cardiovascular: DENIES: Chest pain, Palpitations, Syncope, Dyspnea on Exertion , PND, Lower Extremity Edema Gastrointestinal: DENIES: Abdominal pain, Black stools, Bloody stools, Constipation, Diarrhea, Anorexia Genitourinary: DENIES: Abnormal vaginal bleeding, Dysmenorrhea, Dyspareunia, Sexual dysfunction, Urgency, Hematuria, Dysuria, Nocturia Musculoskeletal: DENIES: Joint pain, Muscle aches, Stiffness, Joint Swelling, Back pain, Neck pain Integumentary: COMPLAINS OF: Rash, DENIES: Abnormal pigmentation, Pruritus, Nail changes, Breast masses, Breast skin changes, Nipple discharge Hematologic/lymphatic: DENIES: Bruising, Lymphadenopathy Immunologic/allergic: DENIES: Eczema, Urticaria Neurologic: DENIES: Abnormal gait, Headache, Localized weakness, Paresthesias, Seizures, Speech Problems, Tremor, Poor Balance Psychiatric: DENIES: Anxiety, Confusion, Mood changes, Depression, Hallucinations, Agitation, Suicidal Ideation, Homicidal Ideation, Delusions Except as stated in HPI: all other systems reviewed are Neg Past Family Social History Past Medical History Chronic anticoagulation with Plavix Hyperlipidemia History of possible TIA Coronary artery disease History of partial thyroidectomy Hiatal hernia/GERD Hypertension Past Surgical History History of partial thyroidectomy Bladder sling Tonsillectomy Spinal cyst surgery Reported Medications Reported Meds & Active Scripts Active Reported Pantoprazole (Pantoprazole Sodium) 40 Mg Tab 40 Mg PO DAILY Amlodipine (Amlodipine Besylate) 2.5 Mg Tab 2.5 Mg PO DAILY Vitamin B-12 (Cyanocobalamin) 1,000 Mcg Subl 1,000 Mcg SL DAILY Plavix (Clopidogrel Bisulfate) 75 Mg Tab 75 Mg PO DAILY Spironolactone 25 Mg Tab 25 Mg PO DAILY Carvedilol 3.125 Mg Tab 3.125 Mg PO DAILY Vitamin D3 (Cholecalciferol) 1,000 Unit Tab 1,000 Units PO DAILY Levothyroxine (Levothyroxine Sodium) 50 Mcg Tab 50 Mcg PO DAILY Atorvastatin (Atorvastatin Calcium) 10 Mg Tab 10 Mg PO HS Allergies: Coded Allergies: Sulfa (Sulfonamide Antibiotics) (Verified Allergy, Severe, Rash, 07/19/17) Active Ordered Medications Current Medications Vancomycin HCl 1000 mg/Sodium Chloride 250 ml @ 250 mls/hr ONCE ONCE IV Last administered on 07/20/17at 04:45; Start 07/20/17 at 04:45; Stop 07/20/17 at 05:44 ; Status DC Morphine Sulfate (Morphine Inj) 4 mg ONCE ONCE IV PUSH Last administered on at 05:20; Start 07/20/17 at 04:45; Stop 07/20/17 at 04:46; Status DC Ketorolac Tromethamine (Toradol Inj) 30 mg ONCE ONCE IV PUSH Last administered on 07/20/17at 05:19; Start 07/20/17 at 04:45; Stop 07/20/17 at 04:46 ; Status DC Ondansetron HCl (Zofran Inj) 4 mg ONCE ONCE IV PUSH Last administered on at 05:20; Start 07/20/17 at 05:15; Stop 07/20/17 at 05:16; Status DC Iohexol (Omnipaque 350 Inj) 75 ml STK-MED ONCE IVCONTRAST Last administered on 07/20/17at 05:47; Start 07/20/17 at 05:47; Stop 07/20/17 at 05:48; Status DC Sodium Chloride (NS Flush) 2 ml UNSCH PRN IV FLUSH FLUSH AFTER USING IV ACCESS ; Start 07/20/17 at 06:30 Sodium Chloride (NS Flush) 2 ml BID IV FLUSH Last administered on 07/20/17at 09: 39; Start 07/20/17 at 09:00 Ondansetron HCl (Zofran Inj) 4 mg Q6H PRN IVP NAUSEA OR VOMITING; Start at 06:30 Naloxone HCl (Narcan Inj) 0.4 mg UNSCH PRN IV PUSH SEE LABEL COMMENTS; Start at 06:30 Morphine Sulfate (Morphine Inj) 2 mg Q3H PRN IV PUSH pain > 4; Start 07/20/17 at 06:30 Pharmacy Profile Note 0 ml @ 0 mls/hr UNSCH OTHER ; Start 07/20/17 at 06:30 Amlodipine Besylate (Norvasc) 2.5 mg DAILY PO Last administered on 07/20/17at 09 :39; Start 07/20/17 at 09:00 Atorvastatin Calcium (Lipitor) 10 mg HS PO ; Start 07/20/17 at 21:00 Carvedilol (Coreg) 3.125 mg DAILY PO Last administered on 07/20/17at 09:41; Start 07/20/17 at 09:00 Levothyroxine Sodium (Synthroid) 50 mcg DAILY@0600 PO Last administered on 07/20at 07:10; Start 07/20/17 at 06:00 Pantoprazole Sodium (Protonix) 40 mg DAILY PO Last administered on 07/20/17at 09 :40; Start 07/20/17 at 09:00 Spironolactone (Aldactone) 25 mg DAILY PO Last administered on 07/20/17at 09:40 ; Start 07/20/17 at 09:00 Vancomycin HCl 1250 mg/Sodium Chloride 262.5 ml @ 250 mls/hr Q18H IV ; Start at 18:00 Miscellaneous Information SPECIFIC LAB TO BE DRAWN:VANCOMYCIN TROUGH DATE TO... ONCE ONCE .XX ; Start 07/22/17 at 23:45; Stop 07/22/17 at 23:46 Piperacillin Sod/ Tazobactam Sod 100 ml @ 200 mls/hr Q8H IV ; Start 07/20/17 at 11:00; Status UNV Pharmacy Profile Note 0 ml @ 0 mls/hr UNSCH OTHER ; Start 07/20/17 at 11:00; Status UNV Family History Goiters in the family Possible hypertension Social History Drinks 1-2 glasses of wine daily Denies any tobacco since 1978 Denies any illicit Physical Exam Vital Signs Vital Signs Date Time Temp Pulse Resp B/P (MAP) Pulse Ox O2 Delivery O2 Flow Rate FiO2 07/20/17 08:30 97.9 61 20 134/68 (90) 95 07/20/17 08:05 98.0 63 16 107/68 (81) 96 07/20/17 06:30 99.8 62 20 110/51 (70) 98 Nasal Cannula 2.00 07/20/17 06:19 20 07/20/17 06:19 20 07/20/17 04:59 20 07/20/17 04:08 98.0 75 18 183/81 (325) 98 Physical Exam GENERAL: This is a well-nourished, well-developed patient, in no apparent distress. SKIN: No rashes, ecchymoses or lesions. Cool and dry. The right naris has crusting and erythema and tenderness inside the right nare, there is some drainage HEAD: Atraumatic. Normocephalic. No temporal or scalp tenderness. EYES: Pupils equal round and reactive. Extraocular motions intact. No scleral icterus. No injection or drainage. ENT: Nose without bleeding, purulent drainage or septal hematoma. Throat without erythema, tonsillar hypertrophy or exudate. Uvula midline. Airway patent. NECK: Trachea midline. No JVD or lymphadenopathy. Supple, nontender, no meningeal signs. CARDIOVASCULAR: Regular rate and rhythm without murmurs, gallops, or rubs. S1- S2 no S3 or S4 RESPIRATORY: Clear to auscultation. Breath sounds equal bilaterally. No wheezes , rales, or rhonchi. GASTROINTESTINAL: Abdomen soft, non-tender, nondistended. No hepato-splenomegaly , or palpable masses. No guarding. MUSCULOSKELETAL: Extremities without clubbing, cyanosis, or edema. No joint tenderness, effusion, or edema noted. No calf tenderness. Negative Homans sign bilaterally. NEUROLOGICAL: Awake and alert. Cranial nerves II through XII intact. Motor and sensory grossly within normal limits. Five out of 5 muscle strength in all muscle groups. Normal speech. Insight and judgment is good Mood and behavior is appropriate Laboratory Laboratory Tests Test 07/20/17 05:00 White Blood Count 9.8 Red Blood Count 4.33 Hemoglobin 13.2 Hematocrit 38.7 Mean Corpuscular Volume 89.3 Mean Corpuscular Hemoglobin 30.6 Mean Corpuscular Hemoglobin Concent 34.2 Red Cell Distribution Width 13.3 Platelet Count 297 Mean Platelet Volume 8.0 Neutrophils (%) (Auto) 75.9 Lymphocytes (%) (Auto) 14.1 Monocytes (%) (Auto) 7.6 Eosinophils (%) (Auto) 1.6 Basophils (%) (Auto) 0.8 Neutrophils # (Auto) 7.4 Lymphocytes # (Auto) 1.4 Monocytes # (Auto) 0.7 Eosinophils # (Auto) 0.2 Basophils # (Auto) 0.1 CBC Comment DIFF FINAL Differential Comment Blood Urea Nitrogen 13 Creatinine 0.59 Random Glucose 107 Calcium Level 8.7 Sodium Level 137 Potassium Level 3.7 Chloride Level 104 Carbon Dioxide Level 27.9 Anion Gap 5 Estimat Glomerular Filtration Rate 97 C-Reactive Protein 3.50 Result Diagram: 07/20/17 0500 07/20/17 0500 Imaging Last Impressions Maxillofacial CT 07/20/17 0000 Signed Impressions: Service Date/Time: Thursday, July 20, 2017 05:42 - CONCLUSION: 1 cm hypodensity in the inferior cartilaginous septum of the nose, suggestive of abscess. MD Nathan Hays VTE Risk Assessment Caprini VTE Risk Assessment: Mod/High Risk (score >= 2) Caprini Risk Assessment Model Point Value = 1 Point Value = 2 Point Value = 3 Point Value = 5 Age 41-60 Minor surgery BMI > 25 kg/m2 Swollen legs Varicose veins or History of unexplained or recurrent spontaneous Oral contraceptives or hormone replacement Sepsis (< 1 month) Serious lung disease, including pneumonia (< 1 month) Abnormal pulmonary function Acute myocardial infarction Congestive heart failure (< 1 month) History of inflammatory bowel disease Medical patient at bed rest Age 61-74 Arthroscopic surgery Major open surgery (> 45 min) Laparoscopic surgery (> 45 min) Malignancy Confined to bed (> 72 hours) Immobilizing plaster cast Central venous access Age >= 75 History of VTE Family history of VTE Factor V Leiden Prothrombin [id number] Lupus anticoagulant Anticardiolipin antibodies Elevated serum homocysteine Heparin-induced thrombocytopenia Other congenital or acquired thrombophilia Stroke (< 1 month) Elective arthroplasty Hip, pelvis, or leg fracture Acute spinal cord injury (< 1 month) Prophylaxis Regimen Total Risk Factor Score Risk Level Prophylaxis Regimen 0-1 Low Early ambulation 2 Moderate Order ONE of the following: *Sequential Compression Device (SCD) *Heparin 5000 units SQ BID 3-4 Higher Order ONE of the following medications: *Heparin 5000 units SQ TID *Enoxaparin/Lovenox 40 mg SQ daily (WT < 150 kg, CrCl > 30 mL/min) *Enoxaparin/Lovenox 30 mg SQ daily (WT < 150 kg, CrCl > 10-29 mL/min) *Enoxaparin/Lovenox 30 mg SQ BID (WT < 150 kg, CrCl > 30 mL/min) AND/OR *Sequential Compression Device (SCD) 5 or more Highest Order ONE of the following medications: *Heparin 5000 units SQ TID (Preferred with Epidurals) *Enoxaparin/Lovenox 40 mg SQ daily (WT < 150 kg, CrCl > 30 mL/min) *Enoxaparin/Lovenox 30 mg SQ daily (WT < 150 kg, CrCl > 10-29 mL/min) *Enoxaparin/Lovenox 30 mg SQ BID (WT < 150 kg, CrCl > 30 mL/min) AND *Sequential Compression Device (SCD) Assessment and Plan Problem List: (1) Nose cellulitis ICD Code: J34.0 - Abscess, furuncle and carbuncle of nose (2) Hypertension ICD Code: I10 - Essential (primary) hypertension Status: Acute (3) Hypothyroidism ICD Code: E03.9 - Hypothyroidism, unspecified Status: Acute (4) Hyperlipidemia ICD Code: E78.5 - Hyperlipidemia, unspecified Status: Acute (5) Nasal septal abscess ICD Code: J34.0 - Abscess, furuncle and carbuncle of nose Status: Acute Assessment and Plan Right nare nasal cellulitis with failed outpatient therapy -continue on Zosyn and vancomycin. - Will consult ENT which is already been called Hypertension resume home medications -amlodipine Plavix Spironolactone Coreg Hypothyroidism resume home medications check a.m. labs continue on levothyroxine Fevers and chills improved on antibiotic Hyperlipidemia continue on home Lipitor GERD continue on Protonix Continue on DVT prophylaxis Already on GI prophylaxis with Protonix Continue antibiotics expect that she is going to be here a couple days before he can be transitioned to oral antibiotics Code Status Full code Discussed Condition With RN and patient and case management Physician Certification 2 Midnight Certification Type: Admission for Inpatient Services Order for Inpatient Services The services are ordered in accordance with Medicare regulations or non- Medicare payer requirements, as applicable. In the case of services not specified as inpatient-only, they are appropriately provided as inpatient services in accordance with the 2-midnight benchmark. Estimated LOS (days): 2 days is the estimated time the patient will need to remain in the hospital, assuming treatment plan goals are met and no additional complications. Post-Hospital Plan: Not yet determined Brandon Samuel DO Jul 20, 2017 11:10
[2017-07-20] MEDS: PIPERACIL-TAZO 4.5 GM PREMIX 100 ML IV SCH ×2 (12:00→21:01)
[2017-07-20] MEDS: MORPHINE SULFATE 2 MG/ML INJ IV PUSH PRN ×2 (13:34→17:49)
[2017-07-20] MEDS: VANCOMYCIN INJ 1,250 MG in SODIUM CHLOR 0.9% 250 ML INJ 250 ML IV SCH (17:50)
[2017-07-20] MEDS ORDERED: MORPHINE SULFATE 2 MG/ML INJ IV PUSH PRN ×2 (18:30)
[2017-07-20] MEDS ORDERED: TEMAZEPAM 15 MG CAP PO PRN (18:30)
[2017-07-20] MEDS ORDERED: LACTULOSE SYRUP 20 GM/30 ML CUP PO PRN (18:30)
[2017-07-20] MEDS ORDERED: oxyCODONE/ACETAMINOPHEN 10 MG/325 MG TAB PO PRN (18:30)
[2017-07-20] MEDS ORDERED: oxyCODONE/ACETAMINOPHEN 5 MG/325 MG TAB PO PRN (18:30)
[2017-07-20] MEDS ORDERED: BISACODYL 10 MG SUPP RECTAL PRN (18:30)
[2017-07-20] MEDS ORDERED: MAGNESIUM HYDROXIDE SUSP 30 ML CUP PO PRN (18:30)
[2017-07-20] MEDS ORDERED: ACETAMINOPHEN 325 MG TAB PO PRN ×2 (18:30)
[2017-07-20] MEDS ORDERED: SENNOSIDES 8.6 MG TAB PO PRN (18:30)
[2017-07-20] MEDS: SODIUM CHLORIDE 0.9% FLUSH 10 ML FLUSH IV FLUSH SCH (20:26)
[2017-07-20] MEDS: DOCUSATE SODIUM 50 MG/SENNA 8.6 MG TAB PO SCH (20:27)
[2017-07-20] MEDS ORDERED: ATORVASTATIN 10 MG TAB PO SCH (21:00)
[2017-07-21] VITALS: BP 153/76; PULSE 73; RESP 20; TEMP 97.5; O2SAT 93
[2017-07-21 04:00] VITALS: BP 128/60; PULSE 70; RESP 20; TEMP 96.8; O2SAT 94
[2017-07-21] MEDS: PIPERACIL-TAZO 4.5 GM PREMIX 100 ML IV SCH ×2 (05:15→11:53)
[2017-07-21] MEDS: LEVOTHYROXINE SODIUM 50 MCG TAB PO SCH (05:15)
[2017-07-21 06:52] LABS: AUTOMATED NEUTROPHIL # 4.2 TH/MM3 (1.8-7.7); BASOPHIL % 0.6 % (0.0-2.0); EOSINOPHIL # 0.2 TH/MM3 (0-0.4); EOSINOPHIL % 3.7 % (0.0-4.0); HEMATOCRIT 35.2 % (35.0-46.0); HEMOGLOBIN 11.4 GM/DL (11.6-15.3); LYMPH % 15.8 % (9.0-44.0); LYMPHOCYTE # 0.9 TH/MM3 (1.0-4.8); MEAN CELL VOLUME 89.4 FL (80.0-100.0); MEAN CORPUSCULAR HEMOGLOBIN 28.9 PG (27.0-34.0); MEAN CORPUSCULAR HGB CONC 32.3 % (32.0-36.0); MONO % 7.6 % (0.0-8.0); MONOCYTE # 0.4 TH/MM3 (0-0.9); NEUT % 72.3 % (16.0-70.0); PLATELET COUNT 288 TH/MM3 (150-450); RED BLOOD COUNT 3.94 MIL/MM3 (4.00-5.30); RED CELL DISTRIBUTION WIDTH 13.1 % (11.6-17.2); WHITE BLOOD COUNT 5.7 TH/MM3 (4.0-11.0)
[2017-07-21 06:56] LABS: CHLORIDE 104 MEQ/L (98-107); SODIUM (NA) 138 MEQ/L (136-145)
[2017-07-21 06:59] LABS: ALBUMIN 2.7 GM/DL (3.4-5.0); CALCIUM 7.9 MG/DL (8.5-10.1)
[2017-07-21 07:00] LABS: BICARBONATE 26.3 MEQ/L (21.0-32.0); BLOOD UREA NITROGEN 13 MG/DL (7-18); GLUCOSE,RANDOM 89 MG/DL (74-106); MAGNESIUM 1.8 MG/DL (1.5-2.5)
[2017-07-21 07:03] LABS: ALT (GPT) 18 U/L (10-53); AST (GOT) 11 U/L (15-37); CREATININE 0.54 MG/DL (0.50-1.00); GLOMERULAR FILTRATION RATE 108 ML/MIN (>89); PHOSPHORUS 3.3 MG/DL (2.5-4.9)
[2017-07-21 07:04] LABS: TOTAL BILIRUBIN ADULT 0.6 MG/DL (0.2-1.0); TOTAL PROTEIN 6.3 GM/DL (6.4-8.2)
[2017-07-21 07:05] LABS: ALKALINE PHOSPHATASE 71 U/L (45-117)
[2017-07-21 07:50] VITALS: BP 134/73; PULSE 68; RESP 20; TEMP 97.2; O2SAT 94
[2017-07-21] MEDS: SODIUM CHLORIDE 0.9% FLUSH 10 ML FLUSH IV FLUSH SCH (08:08)
[2017-07-21] MEDS: SPIRONOLACTONE 25 MG TAB PO SCH (08:09)
[2017-07-21] MEDS: CARVEDILOL 3.125 MG TAB PO SCH (08:09)
[2017-07-21] MEDS: amLODIPine BESYLATE 5 MG TAB PO SCH (08:09)
[2017-07-21] MEDS: DOCUSATE SODIUM 50 MG/SENNA 8.6 MG TAB PO SCH (08:09)
[2017-07-21] MEDS: PANTOPRAZOLE SOD 40 MG DELAYED RELEASE TAB PO SCH (08:10)
[2017-07-21 08:30] VITALS: PULSE 89
--- NOTE | 2017-07-21 08:33 | MB ---
cc: Leno aPntoja MD DATE: 07/20/2017 CHIEF COMPLAINT: Nasal septal abscess. HISTORY OF PRESENT ILLNESS: This is an 82-year-old female who was brought to the emergency room for some cellulitis on her nasal columella late last week. Subsequently, she was given some antibiotic and sent home; however, Tuesday morning, she represented to the emergency room with significant pain in her nose, radiating to her teeth, and was determined to have an abscess possibly of the septum. She was admitted for IV antibiotics and for possible drainage. The patient reports to me since starting the antibiotics and being in the hospital, she is feeling better, but her nose is still very tender and very sore and very swollen. PAST MEDICAL HISTORY: Significant for hyperlipidemia, TIAs, GERD, hypertension and coronary artery disease. PAST SURGICAL HISTORY: Significant for a partial thyroidectomy, tonsillectomy, spinal cyst surgery, as well as a bladder sling. MEDICATIONS: Reviewed per the MAR. ALLERGIES: TO SULFA. SOCIAL HISTORY: She drinks 1-2 glasses of wine daily. She denies any tobacco, and she does not use drugs. PHYSICAL EXAMINATION: Patient is alert and oriented x 3, in no acute distress, lying comfortably in bed. HEENT: Reveals large swollen columella, very inflamed and irritated. The septum itself is intact with no swelling or edema and no evidence of septal abscess. The nasal tip and ala are very erythematous, and there is also excoriation on the right side of the nasal columella. NECK: No lymphadenopathy. HEART: Regular rate and rhythm. LUNGS: Clear to auscultation. PROCEDURE PERFORMED AT BEDSIDE: Tetracaine 6% was placed on a cottonoid and placed around the columella intranasally bilaterally to numb the area. After 5 minutes, the tetracaine was removed, and a small rc incision was made on the right side of the columella, and a large amount of purulent debris was expressed out of the nasal tip and columella area. The patient tolerated this procedure well. ASSESSMENT AND PLAN: Patient with anterior nasal abscess, easily drained at bedside and she tolerated well. Recommend patient receive 24 more hours of antibiotics total and then discharge with 10 days of appropriate antibiotics. THE PATIENT IS ALLERGIC TO SULFA. Therefore, a reasonable antibiotic coverage would likely be ciprofloxacin, as this may be a kind of a community-acquired staph infection from an insect bite, which is usually responsive to Bactrim. Therefore, would recommend possibly ciprofloxacin or Levaquin coverage but would definitely recommend changing from the Keflex she was initially placed on. Patient should follow up with ENT in approximately 10 days. Thank you for this consultation. MD OSMANY Watkins/STEVEN , 08:10 AM , 08:31 AM
--- NOTE | 2017-07-21 09:49 | HHI.PR ---
Subjective Remarks In bed appears in nad. Eating well no problems swallowing. She is breathing well on room air. satting well; Has no pain. No nasal discharge. No n/v/d/c. Wants to go home Objective Vitals Vital Signs Date Time Temp Pulse Resp B/P (MAP) Pulse Ox O2 Delivery O2 Flow Rate FiO2 07/21/17 07:50 97.2 68 20 134/73 (93) 94 07/21/17 04:00 96.8 70 20 128/60 (82) 94 07/21/17 00:00 97.5 73 20 153/76 (101) 93 07/20/17 20:00 97.2 69 20 142/69 (93) 94 07/20/17 19:55 74 07/20/17 17:55 18 07/20/17 15:50 97.0 61 20 147/68 (94) 92 07/20/17 11:50 97.6 58 20 129/62 (84) 95 I/O 07/20/17 07/20/17 07/20/17 07/21/17 07/21/17 07/21/17 07:00 15:00 23:00 07:00 15:00 23:00 Intake Total 250 ml 350 ml 340 ml Balance 250 ml 350 ml 340 ml Intake Oral 0 ml 240 ml IV Total 250 ml 350 ml 100 ml # Voids 2 2 1 # Bowel Movements 0 0 Result Diagram: 07/21/17 0622 07/21/17 0622 Imaging Last Impressions Maxillofacial CT 07/20/17 0000 Signed Impressions: Service Date/Time: Thursday, July 20, 2017 05:42 - CONCLUSION: 1 cm hypodensity in the inferior cartilaginous septum of the nose, suggestive of abscess. Grey Jacob MD Objective Remarks Chronic anticoagulation with Plavix Hyperlipidemia History of possible TIA Coronary artery disease History of partial thyroidectomy Hiatal hernia/GERD Hypertension Past Surgical History History of partial thyroidectomy Bladder sling Tonsillectomy Spinal cyst surgery Reported Medications Reported Meds & Active Scripts Active Reported Pantoprazole (Pantoprazole Sodium) 40 Mg Tab 40 Mg PO DAILY Amlodipine (Amlodipine Besylate) 2.5 Mg Tab 2.5 Mg PO DAILY Vitamin B-12 (Cyanocobalamin) 1,000 Mcg Subl 1,000 Mcg SL DAILY Plavix (Clopidogrel Bisulfate) 75 Mg Tab 75 Mg PO DAILY Spironolactone 25 Mg Tab 25 Mg PO DAILY Carvedilol 3.125 Mg Tab 3.125 Mg PO DAILY Vitamin D3 (Cholecalciferol) 1,000 Unit Tab 1,000 Units PO DAILY Levothyroxine (Levothyroxine Sodium) 50 Mcg Tab 50 Mcg PO DAILY Atorvastatin (Atorvastatin Calcium) 10 Mg Tab 10 Mg PO HS Allergies: Coded Allergies: Sulfa (Sulfonamide Antibiotics) (Verified Allergy, Severe, Rash, 07/19/17) Active Ordered Medications Current Medications Vancomycin HCl 1000 mg/Sodium Chloride 250 ml @ 250 mls/hr ONCE ONCE IV Last administered on 07/20/17at 04:45; Start 07/20/17 at 04:45; Stop 07/20/17 at 05:44 ; Status DC Morphine Sulfate (Morphine Inj) 4 mg ONCE ONCE IV PUSH Last administered on at 05:20; Start 07/20/17 at 04:45; Stop 07/20/17 at 04:46; Status DC Ketorolac Tromethamine (Toradol Inj) 30 mg ONCE ONCE IV PUSH Last administered on 07/20/17at 05:19; Start 07/20/17 at 04:45; Stop 07/20/17 at 04:46 ; Status DC Ondansetron HCl (Zofran Inj) 4 mg ONCE ONCE IV PUSH Last administered on at 05:20; Start 07/20/17 at 05:15; Stop 07/20/17 at 05:16; Status DC Iohexol (Omnipaque 350 Inj) 75 ml STK-MED ONCE IVCONTRAST Last administered on 07/20/17at 05:47; Start 07/20/17 at 05:47; Stop 07/20/17 at 05:48; Status DC Sodium Chloride (NS Flush) 2 ml UNSCH PRN IV FLUSH FLUSH AFTER USING IV ACCESS ; Start 07/20/17 at 06:30 Sodium Chloride (NS Flush) 2 ml BID IV FLUSH Last administered on 07/20/17at 09: 39; Start 07/20/17 at 09:00 Ondansetron HCl (Zofran Inj) 4 mg Q6H PRN IVP NAUSEA OR VOMITING; Start at 06:30 Naloxone HCl (Narcan Inj) 0.4 mg UNSCH PRN IV PUSH SEE LABEL COMMENTS; Start at 06:30 Morphine Sulfate (Morphine Inj) 2 mg Q3H PRN IV PUSH pain > 4; Start 07/20/17 at 06:30 Pharmacy Profile Note 0 ml @ 0 mls/hr UNSCH OTHER ; Start 07/20/17 at 06:30 Amlodipine Besylate (Norvasc) 2.5 mg DAILY PO Last administered on 07/20/17at 09 :39; Start 07/20/17 at 09:00 Atorvastatin Calcium (Lipitor) 10 mg HS PO ; Start 07/20/17 at 21:00 Carvedilol (Coreg) 3.125 mg DAILY PO Last administered on 07/20/17at 09:41; Start 07/20/17 at 09:00 Levothyroxine Sodium (Synthroid) 50 mcg DAILY@0600 PO Last administered on 07/20at 07:10; Start 07/20/17 at 06:00 Pantoprazole Sodium (Protonix) 40 mg DAILY PO Last administered on 07/20/17at 09 :40; Start 07/20/17 at 09:00 Spironolactone (Aldactone) 25 mg DAILY PO Last administered on 07/20/17at 09:40 ; Start 07/20/17 at 09:00 Vancomycin HCl 1250 mg/Sodium Chloride 262.5 ml @ 250 mls/hr Q18H IV ; Start at 18:00 Miscellaneous Information SPECIFIC LAB TO BE DRAWN:VANCOMYCIN TROUGH DATE TO... ONCE ONCE .XX ; Start 07/22/17 at 23:45; Stop 07/22/17 at 23:46 Piperacillin Sod/ Tazobactam Sod 100 ml @ 200 mls/hr Q8H IV ; Start 07/20/17 at 11:00; Status UNV Pharmacy Profile Note 0 ml @ 0 mls/hr UNSCH OTHER ; Start 07/20/17 at 11:00; Status UNV Family History Goiters in the family Possible hypertension Social History Drinks 1-2 glasses of wine daily Denies any tobacco since 1978 Denies any illicit Physical Exam Physical Exam Vital Signs Vital Signs Date Time Temp Pulse Resp B/P (MAP) Pulse Ox O2 Delivery O2 Flow Rate FiO2 07/20/17 08:30 97.9 61 20 134/68 (90) 95 07/20/17 08:05 98.0 63 16 107/68 (81) 96 07/20/17 06:30 99.8 62 20 110/51 (70) 98 Nasal Cannula 2.00 07/20/17 06:19 20 07/20/17 06:19 20 07/20/17 04:59 20 07/20/17 04:08 98.0 75 18 183/81 (115) 98 Physical Exam GENERAL: This is a well-nourished, well-developed patient, in no apparent distress. SKIN: No rashes, ecchymoses or lesions. Cool and dry. The right naris has crusting and erythema and tenderness inside the right nare, there is some drainage HEAD: Atraumatic. Normocephalic. No temporal or scalp tenderness. EYES: Pupils equal round and reactive. Extraocular motions intact. No scleral icterus. No injection or drainage. ENT: Nose without bleeding, purulent drainage or septal hematoma. Throat without erythema, tonsillar hypertrophy or exudate. Uvula midline. Airway patent. NECK: Trachea midline. No JVD or lymphadenopathy. Supple, nontender, no meningeal signs. CARDIOVASCULAR: Regular rate and rhythm without murmurs, gallops, or rubs. S1- S2 no S3 or S4 RESPIRATORY: Clear to auscultation. Breath sounds equal bilaterally. No wheezes , rales, or rhonchi. GASTROINTESTINAL: Abdomen soft, non-tender, nondistended. No hepato-splenomegaly , or palpable masses. No guarding. MUSCULOSKELETAL: Extremities without clubbing, cyanosis, or edema. No joint tenderness, effusion, or edema noted. No calf tenderness. Negative Homans sign bilaterally. NEUROLOGICAL: Awake and alert. Cranial nerves II through XII intact. Motor and sensory grossly within normal limits. Five out of 5 muscle strength in all muscle groups. Normal speech. PSYCHIATRIC: Insight and judgment normal. Mood and behavior is appropriate A/P Problem List: (1) Nose cellulitis ICD Code: J34.0 - Abscess, furuncle and carbuncle of nose (2) Hypertension ICD Code: I10 - Essential (primary) hypertension Status: Acute (3) Hypothyroidism ICD Code: E03.9 - Hypothyroidism, unspecified Status: Acute (4) Hyperlipidemia ICD Code: E78.5 - Hyperlipidemia, unspecified Status: Acute (5) Nasal septal abscess ICD Code: J34.0 - Abscess, furuncle and carbuncle of nose Status: Acute Assessment and Plan Right nare nasal cellulitis with failed outpatient therapy -continue on Zosyn and vancomycin. - Will consult ENT which is already been called Hypertension resume home medications -amlodipine Plavix Spironolactone Coreg Hypothyroidism resume home medications check a.m. labs continue on levothyroxine Fevers and chills improved on antibiotic Hyperlipidemia continue on home Lipitor GERD continue on Protonix Continue on DVT prophylaxis Already on GI prophylaxis with Protonix Continue antibiotics expect that she is going to be here a couple days before he can be transitioned to oral antibiotics Code Status Full code Discussed Condition With Patient and case management Kae Christianson MD Jul 21, 2017 09:49
[2017-07-21 11:50] VITALS: BP 132/62; PULSE 70; RESP 20; TEMP 99.3; O2SAT 94
[2017-07-21] MEDS ORDERED: CIPR500T2 PO (11:54)
--- NOTE | 2017-07-21 11:56 | HHI.DS ---
Discharge Summary Admission Date Jul 20, 2017 at 06:48 Discharge Date: Jul 21, 2017 Admitting Diagnosis Nasal septal abscess, outpatient treatment failure (1) Nose cellulitis ICD Code: J34.0 - Abscess, furuncle and carbuncle of nose (2) Hypertension ICD Code: I10 - Essential (primary) hypertension Status: Acute (3) Hypothyroidism ICD Code: E03.9 - Hypothyroidism, unspecified Status: Acute (4) Hyperlipidemia ICD Code: E78.5 - Hyperlipidemia, unspecified Status: Acute (5) Nasal septal abscess ICD Code: J34.0 - Abscess, furuncle and carbuncle of nose Status: Acute Procedures no procedures Brief History - From Admission Patient is a 82-year-old female. SHE was initially seen in the emergency department with infection in the right NARE of her nose that was getting worse in spite of being on Keflex antibiotics. Patient therefore decided to come back to the hospital for further evaluation since this is more painful and tender to her patient had been dealing with this since last Tuesday started having pain in her right nare. She had gone to an urgent care clinic on Tuesday was told there was probably allergy was discharged home on Flonase and some other nasal spray. But by the end of the day of the symptoms did not get better and wanted decided to come the emergency department. Patient was seen in [place] emergency department was discharged home on Keflex antibiotics. Patient states that she has been taking the antibiotic for more than 24 hours and putting warm compresses on it but the swelling and redness and pain is gotten worse. She therefore was unable to sleep because of the pain and therefore came back to the hospital for evaluation. Patient stated pain was radiating to her teeth and her ears. Had some questionable chills intermittently vital signs were stable and she presented has no history of MRSA that she knows of. ENT will be consulted. We will continue on antibiotics with vancomycin and Zosyn With pharmacy to dose CBC/BMP: 07/21/17 0622 07/21/17 0622 Significant Findings Laboratory Tests Test 07/20/17 05:00 07/21/17 06:22 Neutrophils (%) (Auto) 75.9 % (16.0-70.0) 72.3 % (16.0-70.0) Random Glucose 107 MG/DL (74-106) C-Reactive Protein 3.50 MG/DL (0.00-0.30) Red Blood Count 3.94 MIL/MM3 (4.00-5.30) Hemoglobin 11.4 GM/DL (11.6-15.3) Lymphocytes # (Auto) 0.9 TH/MM3 (1.0-4.8) Total Protein 6.3 GM/DL (6.4-8.2) Albumin 2.7 GM/DL (3.4-5.0) Calcium Level 7.9 MG/DL (8.5-10.1) Aspartate Amino Transf (AST/SGOT) 11 U/L (15-37) Imaging Last Impressions Maxillofacial CT 07/20/17 0000 Signed Impressions: Service Date/Time: Thursday, July 20, 2017 05:42 - CONCLUSION: 1 cm hypodensity in the inferior cartilaginous septum of the nose, suggestive of abscess. Grey Jacob MD PE at Discharge Chronic anticoagulation with Plavix Hyperlipidemia History of possible TIA Coronary artery disease History of partial thyroidectomy Hiatal hernia/GERD Hypertension Past Surgical History History of partial thyroidectomy Bladder sling Tonsillectomy Spinal cyst surgery Reported Medications Reported Meds & Active Scripts Active Reported Pantoprazole (Pantoprazole Sodium) 40 Mg Tab 40 Mg PO DAILY Amlodipine (Amlodipine Besylate) 2.5 Mg Tab 2.5 Mg PO DAILY Vitamin B-12 (Cyanocobalamin) 1,000 Mcg Subl 1,000 Mcg SL DAILY Plavix (Clopidogrel Bisulfate) 75 Mg Tab 75 Mg PO DAILY Spironolactone 25 Mg Tab 25 Mg PO DAILY Carvedilol 3.125 Mg Tab 3.125 Mg PO DAILY Vitamin D3 (Cholecalciferol) 1,000 Unit Tab 1,000 Units PO DAILY Levothyroxine (Levothyroxine Sodium) 50 Mcg Tab 50 Mcg PO DAILY Atorvastatin (Atorvastatin Calcium) 10 Mg Tab 10 Mg PO HS Allergies: Coded Allergies: Sulfa (Sulfonamide Antibiotics) (Verified Allergy, Severe, Rash, 07/19/17) Active Ordered Medications Current Medications Vancomycin HCl 1000 mg/Sodium Chloride 250 ml @ 250 mls/hr ONCE ONCE IV Last administered on 07/20/17at 04:45; Start 07/20/17 at 04:45; Stop 07/20/17 at 05:44 ; Status DC Morphine Sulfate (Morphine Inj) 4 mg ONCE ONCE IV PUSH Last administered on at 05:20; Start 07/20/17 at 04:45; Stop 07/20/17 at 04:46; Status DC Ketorolac Tromethamine (Toradol Inj) 30 mg ONCE ONCE IV PUSH Last administered on 07/20/17at 05:19; Start 07/20/17 at 04:45; Stop 07/20/17 at 04:46 ; Status DC Ondansetron HCl (Zofran Inj) 4 mg ONCE ONCE IV PUSH Last administered on at 05:20; Start 07/20/17 at 05:15; Stop 07/20/17 at 05:16; Status DC Iohexol (Omnipaque 350 Inj) 75 ml STK-MED ONCE IVCONTRAST Last administered on 07/20/17at 05:47; Start 07/20/17 at 05:47; Stop 07/20/17 at 05:48; Status DC Sodium Chloride (NS Flush) 2 ml UNSCH PRN IV FLUSH FLUSH AFTER USING IV ACCESS ; Start 07/20/17 at 06:30 Sodium Chloride (NS Flush) 2 ml BID IV FLUSH Last administered on 07/20/17at 09: 39; Start 07/20/17 at 09:00 Ondansetron HCl (Zofran Inj) 4 mg Q6H PRN IVP NAUSEA OR VOMITING; Start at 06:30 Naloxone HCl (Narcan Inj) 0.4 mg UNSCH PRN IV PUSH SEE LABEL COMMENTS; Start at 06:30 Morphine Sulfate (Morphine Inj) 2 mg Q3H PRN IV PUSH pain > 4; Start 07/20/17 at 06:30 Pharmacy Profile Note 0 ml @ 0 mls/hr UNSCH OTHER ; Start 07/20/17 at 06:30 Amlodipine Besylate (Norvasc) 2.5 mg DAILY PO Last administered on 07/20/17at 09 :39; Start 07/20/17 at 09:00 Atorvastatin Calcium (Lipitor) 10 mg HS PO ; Start 07/20/17 at 21:00 Carvedilol (Coreg) 3.125 mg DAILY PO Last administered on 07/20/17at 09:41; Start 07/20/17 at 09:00 Levothyroxine Sodium (Synthroid) 50 mcg DAILY@0600 PO Last administered on 07/20at 07:10; Start 07/20/17 at 06:00 Pantoprazole Sodium (Protonix) 40 mg DAILY PO Last administered on 07/20/17at 09 :40; Start 07/20/17 at 09:00 Spironolactone (Aldactone) 25 mg DAILY PO Last administered on 07/20/17at 09:40 ; Start 07/20/17 at 09:00 Vancomycin HCl 1250 mg/Sodium Chloride 262.5 ml @ 250 mls/hr Q18H IV ; Start at 18:00 Miscellaneous Information SPECIFIC LAB TO BE DRAWN:VANCOMYCIN TROUGH DATE TO... ONCE ONCE .XX ; Start 07/22/17 at 23:45; Stop 07/22/17 at 23:46 Piperacillin Sod/ Tazobactam Sod 100 ml @ 200 mls/hr Q8H IV ; Start 07/20/17 at 11:00; Status UNV Pharmacy Profile Note 0 ml @ 0 mls/hr UNSCH OTHER ; Start 07/20/17 at 11:00; Status UNV Family History Goiters in the family Possible hypertension Social History Drinks 1-2 glasses of wine daily Denies any tobacco since 1978 Denies any illicit Physical Exam Physical Exam Vital Signs Vital Signs Date Time Temp Pulse Resp B/P (MAP) Pulse Ox O2 Delivery O2 Flow Rate FiO2 07/20/17 08:30 97.9 61 20 134/68 (90) 95 07/20/17 08:05 98.0 63 16 107/68 (81) 96 07/20/17 06:30 99.8 62 20 110/51 (70) 98 Nasal Cannula 2.00 07/20/17 06:19 20 07/20/17 06:19 20 07/20/17 04:59 20 07/20/17 04:08 98.0 75 18 183/81 (115) 98 Physical Exam GENERAL: This is a well-nourished, well-developed patient, in no apparent distress. SKIN: No rashes, ecchymoses or lesions. Cool and dry. The right naris has crusting and erythema and tenderness inside the right nare, there is some drainage HEAD: Atraumatic. Normocephalic. No temporal or scalp tenderness. EYES: Pupils equal round and reactive. Extraocular motions intact. No scleral icterus. No injection or drainage. ENT: Nose without bleeding, purulent drainage or septal hematoma. Throat without erythema, tonsillar hypertrophy or exudate. Uvula midline. Airway patent. NECK: Trachea midline. No JVD or lymphadenopathy. Supple, nontender, no meningeal signs. CARDIOVASCULAR: Regular rate and rhythm without murmurs, gallops, or rubs. S1- S2 no S3 or S4 RESPIRATORY: Clear to auscultation. Breath sounds equal bilaterally. No wheezes , rales, or rhonchi. GASTROINTESTINAL: Abdomen soft, non-tender, nondistended. No hepato-splenomegaly , or palpable masses. No guarding. MUSCULOSKELETAL: Extremities without clubbing, cyanosis, or edema. No joint tenderness, effusion, or edema noted. No calf tenderness. Negative Homans sign bilaterally. NEUROLOGICAL: Awake and alert. Cranial nerves II through XII intact. Motor and sensory grossly within normal limits. Five out of 5 muscle strength in all muscle groups. Normal speech. PSYCHIATRIC: Insight and judgment normal. Mood and behavior is appropriate Hospital Course Right nare nasal cellulitis with failed outpatient therapy -continue on Zosyn and vancomycin. - Will consult ENT which is already been called Hypertension resume home medications -amlodipine Plavix Spironolactone Coreg Hypothyroidism resume home medications check a.m. labs continue on levothyroxine Fevers and chills improved on antibiotic Hyperlipidemia continue on home Lipitor GERD continue on Protonix Continue on DVT prophylaxis Already on GI prophylaxis with Protonix Patient improved significantly. Received IV antibiotics for 24 hours. Switch to ciprofloxacin 500 mg p.o. twice daily for 10 days per ENT recommendations. Patient to follow-up with ENT as outpatient. Patient is discharged in stable condition to home to follow-up with PCP and consultants as outpatient. Pt Condition on Discharge: Stable Discharge Disposition: Discharge Home Discharge Time: > 30 minutes Discharge Instructions DIET: Follow Instructions for: As Tolerated, No Restrictions Activities you can perform: Regular-No Restrictions Follow up Referrals: Ear Nose Throat - 10 Days with Leno Pantoja MD PCP Follow-up - 2-3 Days New Medications: Ciprofloxacin (Ciprofloxacin) 500 Mg Tab 500 MG PO BID for Infection, #20 TAB 0 Refills Continued Medications: Amlodipine (Amlodipine) 2.5 Mg Tab 2.5 MG PO DAILY for Blood Pressure Management, #30 TAB 0 Refills Atorvastatin (Atorvastatin) 10 Mg Tab 10 MG PO HS for Cholesterol Management, #30 TAB 0 Refills Carvedilol (Carvedilol) 3.125 Mg Tab 3.125 MG PO DAILY, #60 TAB 0 Refills Cholecalciferol (Vitamin D3) 1,000 Unit Tab 1000 UNITS PO DAILY for Nutritional Supplement, #1 BOTTLE 0 Refills Clopidogrel (Plavix) 75 Mg Tab 75 MG PO DAILY for Blood Clot Prevention, #30 TAB 0 Refills Cyanocobalamin (Vitamin B-12) 1,000 Mcg Subl 1000 MCG SL DAILY for Nutritional Supplement, TAB.SL 0 Refills Levothyroxine (Levothyroxine) 50 Mcg Tab 50 MCG PO DAILY for Thyroid, #30 TAB 0 Refills Pantoprazole (Pantoprazole) 40 Mg Tab 40 MG PO DAILY for Reflux, #30 TAB 0 Refills Spironolactone (Spironolactone) 25 Mg Tab 25 MG PO DAILY, #30 TAB 0 Refills Kae Christianson MD Jul 21, 2017 11:56
[2017-07-21] MEDS: VANCOMYCIN INJ 1,250 MG in SODIUM CHLOR 0.9% 250 ML INJ 250 ML IV SCH (12:36)
[2017-07-21 17:24] LABS: HEMOGLOBIN A1C 5.2 % (4.3-6.0)
[2017-07-21 20:57] LABS: FREE T4 1.29 NG/DL (0.76-1.46)
[2017-07-22] MEDS ORDERED: PHARMACY ORDERED LAB ONE (23:45)
== END 2017-07-21 14:45 | disposition home or self-care (01) | DRG 156 ==
LOC: PHED 04:04 → PHEDA 06:48 → PH3A 08:05
PROVIDERS: ADMIT Hospitalist; ATTEND Hospitalist
PROC: 099 Ear, Nose, Sinus, Drainage (ICD-10-PCS; principal; 2017-07-21)
DX: J34.0 Abscess, furuncle and carbuncle of nose (principal); I10 Essential (primary) hypertension; E78.5 Hyperlipidemia, unspecified; I25.10 Atherosclerotic heart disease of native coronary artery without angina pectoris; E89.0 Postprocedural hypothyroidism; K21.9 Gastro-esophageal reflux disease without esophagitis; Z86.73 Personal history of transient ischemic attack (TIA), and cerebral infarction without residual deficits; Z87.891 Personal history of nicotine dependence; Z88.2 Allergy status to sulfonamides; Z79.82 Long term (current) use of aspirin; Z79.899 Other long term (current) drug therapy
CPT/HCPCS: 70487; 80048; 80053; 83036; 83735; 84100; 84439; 84443; 85025; 86140; 96365; 96366; 96375; J1885; J2270; J2405; J2543; J3370; J7050; Q9967

== ENCOUNTER 2017-08-27 09:57 | Emergency (ER) | payer MEDICARE, OTHER ==
[~2017-08-27] VITALS: Ht 165.1 cm; Wt 60.0 kg
[~2017-08-27 09:57] MED LIST changes: +AMLO2.5T PO; -CEPH-460 PO; +CIPR500T2 PO; -ENTERAGAM PO; +PANT40TA3 PO
[2017-08-27 10:09] VITALS: BP 154/72; PULSE 63; RESP 16; TEMP 97.9; O2SAT 96
--- NOTE | 2017-08-27 10:29 | PD ---
HPI Chief Complaint: Skin Problem Time Seen by Provider: 10:20 Travel History International Travel<30 days: No Contact w/Intl Traveler<30days: No Traveled to known affect area: No History of Present Illness HPI 82-year-old female presents to the emergency department for evaluation an area of cellulitis to her left cheek. Patient states that started approximately 5 days ago. She is not currently on antibiotics. She states it started as a small pimple, but has slowly worsened. No fevers or chills. Current pain is 9/ 10, aching, without radiation. She denies any other symptoms or complaints right now. Moderate severity. PFSH Past Medical History Hx Anticoagulant Therapy: Yes (PLAVIX) Autoimmune Disease: No Blood Disorders: No Anxiety: No Depression: No Heart Rhythm Problems: No Cancer: No Cardiac Catheterization: No Cardiovascular Problems: Yes (HTN, CHOL) High Cholesterol: Yes Congestive Heart Failure: No Cerebrovascular Accident: Yes (TIA) Coronary Artery Disease: Yes Diabetes: No Diminished Hearing: No Endocrine: Yes Gastrointestinal Disorders: Yes (THICKENED COLON) Genitourinary: No Headaches: Yes Hiatal Hernia: Yes Hypertension: Yes Implanted Vascular Access Dvce: No Musculoskeletal: No Neurologic: Yes Psychiatric: No Reproductive: No Respiratory: No Immunizations Current: Yes Thyroid Disease: Yes Menopausal: Yes Past Surgical History Coronary Artery Bypass Graft: No Endocrine Surgery: Yes (PARTIAL THYROIDECTOMY) Gynecologic Surgery: Yes (BLADDER SLING) Tonsillectomy: Yes Other Surgery: Yes (SPINAL CYST) Social History Alcohol Use: Yes (1-2 GLASSES WINE) Tobacco Use: No (QUIT 1978) Substance Use: No Allergies-Medications (Allergen,Severity, Reaction): Coded Allergies: Sulfa (Sulfonamide Antibiotics) (Verified Allergy, Severe, Rash, 08/27/17) Reported Meds & Prescriptions Reported Meds & Active Scripts Active Reported Pantoprazole (Pantoprazole Sodium) 40 Mg Tab 40 Mg PO DAILY Amlodipine (Amlodipine Besylate) 2.5 Mg Tab 2.5 Mg PO DAILY Vitamin B-12 (Cyanocobalamin) 1,000 Mcg Subl 1,000 Mcg SL DAILY Plavix (Clopidogrel Bisulfate) 75 Mg Tab 75 Mg PO DAILY Spironolactone 25 Mg Tab 25 Mg PO DAILY Carvedilol 3.125 Mg Tab 3.125 Mg PO DAILY Vitamin D3 (Cholecalciferol) 1,000 Unit Tab 1,000 Units PO DAILY Levothyroxine (Levothyroxine Sodium) 50 Mcg Tab 50 Mcg PO DAILY Atorvastatin (Atorvastatin Calcium) 10 Mg Tab 10 Mg PO HS Review of Systems Except as stated in HPI: all other systems reviewed are Neg Physical Exam Narrative GENERAL: Well-nourished, well-developed elderly female patient, afebrile. SKIN: Focused skin assessment warm/dry. Patient is approximate 2 cm area of erythema to the left cheek with small possible fluctuance to the center. HEAD: Normocephalic. Atraumatic EYES: No scleral icterus. No injection or drainage. NECK: Supple, trachea midline. No JVD or lymphadenopathy. CARDIOVASCULAR: Regular rate and rhythm without murmurs, gallops, or rubs. RESPIRATORY: Breath sounds equal bilaterally. No accessory muscle use. Lung sounds are clear to auscultation. GASTROINTESTINAL: Abdomen soft, non-tender, nondistended. MUSCULOSKELETAL: No cyanosis, or edema. BACK: Nontender without obvious deformity. No CVA tenderness. Data Data Last Documented VS Vital Signs Date Time Temp Pulse Resp B/P (MAP) Pulse Ox O2 Delivery O2 Flow Rate FiO2 08/27/17 10:09 97.9 63 16 154/72 (99) 96 Orders Orders Wound Culture And Gram Stain (08/27/17 10:26) Lidocai-Epi 1%-1:100,000 Inj (Xylocaine- (08/27/17 10:30) Lidocaine Pf 1% Inj (Xylocaine-Mpf 1% In (08/27/17 10:43) MDM Medical Decision Making Medical Screen Exam Complete: Yes Emergency Medical Condition: Yes Medical Record Reviewed: Yes Differential Diagnosis Abscess versus cellulitis versus pustule Narrative Course 82-year-old female presents to the emergency department for evaluation of area of erythema to left cheek. Symptoms are mild at this time. Incision and drainage will be completed. She gives verbal consent for this. Incision and drainage was completed. Wound culture is taken. Patient will be discharged with a prescription for clindamycin. She is instructed take over-the -counter probiotic with antibiotic. Patient is instructed on proper wound care. She is return for any acute worsening of symptoms. Procedures Procedure Narrative INCISION AND DRAINAGE OF ABSCESS: The area was prepped and was sterilely draped. A subcutaneous wheal of 1% Xylocaine with epinephrine with a total number 1 mL was used to anesthetize the area. The area was properly anesthetized. A number 11 scalpel was used to make a 0.3 -cm incision across the area of the abscess. Cultures were obtained. The abscess was drained an irrigated with normal saline. Sterile dressing applied. Diagnosis Primary Impression: Facial abscess Referrals: Primary Care Physician call for appointment Patient Instructions: Abscess (ED), Abscess Incision and Drainage (DC), General Instructions Additional Instructions: Clean area twice daily with soap and water and apply [id number] antibiotic ointment. Take antibiotic as directed until gone. Take [id number] probiotic while on antibiotic. Follow-up with a primary care physician. Return to the emergency department for any acute worsening of symptoms. Med/Other Pt SpecificInfo: Prescription(s) given Scripts Clindamycin (Clindamycin) 300 Mg Cap 300 MG PO Q6H for Infection for 10 Days, #40 CAP 0 Refills Prov: Clarissa Briceño 08/27/17 Disposition: 01 DISCHARGE HOME Condition: Stable Clarissa Briceño Aug 27, 2017 10:29
[2017-08-27] MEDS ORDERED: LIDOCAINE 1%/EPINEPHrine 1:100,000 SOLN 20 ML VIAL INFIL ONE (10:30)
[2017-08-27] MEDS ORDERED: LIDOCAINE HCL 1% PF 30 ML VIAL ONE (10:43)
[2017-08-27] MEDS ORDERED: CLIN300C5 PO (10:50)
== END 2017-08-27 11:07 | disposition home or self-care (01) ==
LOC: PHEFT 09:57
DX: L02.01 Cutaneous abscess of face (principal); B95.62 Methicillin resistant Staphylococcus aureus infection as the cause of diseases classified elsewhere; I10 Essential (primary) hypertension; E78.00 Pure hypercholesterolemia, unspecified; I25.10 Atherosclerotic heart disease of native coronary artery without angina pectoris; E07.9 Disorder of thyroid, unspecified; Z86.73 Personal history of transient ischemic attack (TIA), and cerebral infarction without residual deficits; Z87.891 Personal history of nicotine dependence
CPT/HCPCS: 10060; 86403; 87070; 87186; 87205

== ENCOUNTER 2017-09-17 20:04 | Inpatient (IN) | END 2017-09-20 15:24 | disposition home or self-care (01) | DRG 194 | DX: J18.9 Pneumonia, unspecified organism (principal); K50.90 Crohn's disease, unspecified, without complications; I10 Essential (primary) hypertension; R91.1 Solitary pulmonary nodule; Z86.73 Personal history of transient ischemic attack (TIA), and cerebral infarction without residual deficits; I25.10 Atherosclerotic heart disease of native coronary artery without angina pectoris; E78.5 Hyperlipidemia, unspecified; E03.9 Hypothyroidism, unspecified; Z79.02 Long term (current) use of antithrombotics/antiplatelets; Z87.891 Personal history of nicotine dependence ==